=== PATIENT | male | born 1945 | race Caucasian/White ===

== ENCOUNTER → 2016-06-20 | Outpatient (CLI) | payer MEDICARE ==
[2016-05-10 11:12] VITALS: BP 126/80
[~2016-06-20] MED LIST: ATOR20TA PO; ATOR20TA58 PO; CEPH-264 PO; FLUC100T7 PO; FURO-68 PO; LOSA25TA4 PO; OMEG500C3 PO; POTA99TA10 PO; SULF1TAB24 PO; TAMS0.4C97 PO
== END | disposition home or self-care (01) ==
LOC: PMGWOUND 15:07
PROVIDERS: ATTEND Emergency Medicine Undersea and Hyperbaric Medicine
DX: I87.332 Chronic venous hypertension (idiopathic) with ulcer and inflammation of left lower extremity (principal); L97.221 Non-pressure chronic ulcer of left calf limited to breakdown of skin; E78.00 Pure hypercholesterolemia, unspecified; Z87.891 Personal history of nicotine dependence; Z72.89 Other problems related to lifestyle; Z85.038 Personal history of other malignant neoplasm of large intestine
CPT/HCPCS: 99203; 99214

== ENCOUNTER → 2016-06-27 | Outpatient (CLI) | payer MEDICARE ==
[2016-05-10 11:12] VITALS: BP 126/80
== END | disposition home or self-care (01) ==
LOC: PMGWOUND 13:40
PROVIDERS: ATTEND Emergency Medicine Undersea and Hyperbaric Medicine
DX: I87.332 Chronic venous hypertension (idiopathic) with ulcer and inflammation of left lower extremity (principal); L97.221 Non-pressure chronic ulcer of left calf limited to breakdown of skin; L03.116 Cellulitis of left lower limb; E78.00 Pure hypercholesterolemia, unspecified; I89.0 Lymphedema, not elsewhere classified; Z85.038 Personal history of other malignant neoplasm of large intestine; Z87.891 Personal history of nicotine dependence; Z72.89 Other problems related to lifestyle
CPT/HCPCS: 99214

== ENCOUNTER → 2016-07-04 | Outpatient (CLI) | payer MEDICARE ==
[2016-05-10 11:12] VITALS: BP 126/80
== END | disposition home or self-care (01) ==
LOC: PMGWOUND 12:27
PROVIDERS: ATTEND Emergency Medicine Undersea and Hyperbaric Medicine
DX: I87.332 Chronic venous hypertension (idiopathic) with ulcer and inflammation of left lower extremity (principal); L97.221 Non-pressure chronic ulcer of left calf limited to breakdown of skin; E78.00 Pure hypercholesterolemia, unspecified; Z87.891 Personal history of nicotine dependence; Z72.89 Other problems related to lifestyle; Z85.038 Personal history of other malignant neoplasm of large intestine
CPT/HCPCS: 99214

== ENCOUNTER → 2017-06-22 | Outpatient (CLI) | payer MEDICARE | END | disposition home or self-care (01) | LOC: PMGWOUND 10:32 | DX: I87.333 Chronic venous hypertension (idiopathic) with ulcer and inflammation of bilateral lower extremity (principal); L97.221 Non-pressure chronic ulcer of left calf limited to breakdown of skin; L97.811 Non-pressure chronic ulcer of other part of right lower leg limited to breakdown of skin; E78.00 Pure hypercholesterolemia, unspecified; L02.212 Cutaneous abscess of back [any part, except buttock and flank]; I89.0 Lymphedema, not elsewhere classified; Z85.038 Personal history of other malignant neoplasm of large intestine; Z87.891 Personal history of nicotine dependence | CPT/HCPCS: 97597; 97598 ==

== ENCOUNTER → 2017-06-27 | Outpatient (CLI) | payer MEDICARE | END | disposition home or self-care (01) | LOC: PMGWOUND 10:50 | DX: I87.332 Chronic venous hypertension (idiopathic) with ulcer and inflammation of left lower extremity (principal); L97.221 Non-pressure chronic ulcer of left calf limited to breakdown of skin; E78.00 Pure hypercholesterolemia, unspecified; L02.212 Cutaneous abscess of back [any part, except buttock and flank]; I89.0 Lymphedema, not elsewhere classified; Z85.038 Personal history of other malignant neoplasm of large intestine; Z87.891 Personal history of nicotine dependence | CPT/HCPCS: 29581 ==

== ENCOUNTER → 2017-06-30 | Outpatient (CLI) | payer MEDICARE | END | disposition home or self-care (01) | LOC: PMGWOUND 11:50 | DX: I87.332 Chronic venous hypertension (idiopathic) with ulcer and inflammation of left lower extremity (principal); L97.221 Non-pressure chronic ulcer of left calf limited to breakdown of skin; E78.00 Pure hypercholesterolemia, unspecified; L02.212 Cutaneous abscess of back [any part, except buttock and flank]; I89.0 Lymphedema, not elsewhere classified; Z85.038 Personal history of other malignant neoplasm of large intestine; Z87.891 Personal history of nicotine dependence | CPT/HCPCS: 29581 ==

== ENCOUNTER → 2017-07-04 | Outpatient (CLI) | payer MEDICARE | END | disposition home or self-care (01) | LOC: PMGWOUND 10:08 | DX: I87.332 Chronic venous hypertension (idiopathic) with ulcer and inflammation of left lower extremity (principal); L97.221 Non-pressure chronic ulcer of left calf limited to breakdown of skin; I89.0 Lymphedema, not elsewhere classified; E78.00 Pure hypercholesterolemia, unspecified; Z85.038 Personal history of other malignant neoplasm of large intestine; Z87.891 Personal history of nicotine dependence | CPT/HCPCS: 99214 ==

== ENCOUNTER → 2017-07-11 | Outpatient (CLI) | payer MEDICARE | END | disposition home or self-care (01) | LOC: PMGWOUND 10:34 | DX: I87.332 Chronic venous hypertension (idiopathic) with ulcer and inflammation of left lower extremity (principal); L97.221 Non-pressure chronic ulcer of left calf limited to breakdown of skin; I89.0 Lymphedema, not elsewhere classified; E78.00 Pure hypercholesterolemia, unspecified; Z85.038 Personal history of other malignant neoplasm of large intestine; Z87.891 Personal history of nicotine dependence | CPT/HCPCS: 29581 ==

== ENCOUNTER → 2017-07-14 | Outpatient (CLI) | payer MEDICARE | END | disposition home or self-care (01) | LOC: PMGWOUND 10:52 | DX: I87.332 Chronic venous hypertension (idiopathic) with ulcer and inflammation of left lower extremity (principal); L97.221 Non-pressure chronic ulcer of left calf limited to breakdown of skin; I89.0 Lymphedema, not elsewhere classified; E78.00 Pure hypercholesterolemia, unspecified; Z85.038 Personal history of other malignant neoplasm of large intestine; Z87.891 Personal history of nicotine dependence | CPT/HCPCS: 29581 ==

== ENCOUNTER → 2017-07-18 | Outpatient (CLI) | payer MEDICARE | END | disposition home or self-care (01) | LOC: PMGWOUND 10:43 | DX: I87.332 Chronic venous hypertension (idiopathic) with ulcer and inflammation of left lower extremity (principal); L97.221 Non-pressure chronic ulcer of left calf limited to breakdown of skin; I89.0 Lymphedema, not elsewhere classified; E78.00 Pure hypercholesterolemia, unspecified; Z85.038 Personal history of other malignant neoplasm of large intestine; Z87.891 Personal history of nicotine dependence | CPT/HCPCS: 29581 ==

== ENCOUNTER → 2017-07-21 | Outpatient (CLI) | payer MEDICARE | END | disposition home or self-care (01) | LOC: PMGWOUND 10:57 | DX: I87.332 Chronic venous hypertension (idiopathic) with ulcer and inflammation of left lower extremity (principal); L97.221 Non-pressure chronic ulcer of left calf limited to breakdown of skin; I89.0 Lymphedema, not elsewhere classified; E78.00 Pure hypercholesterolemia, unspecified; Z85.038 Personal history of other malignant neoplasm of large intestine | CPT/HCPCS: 29581 ==

== ENCOUNTER → 2017-07-25 | Outpatient (CLI) | payer MEDICARE | END | disposition home or self-care (01) | LOC: PMGWOUND 09:54 | DX: I87.332 Chronic venous hypertension (idiopathic) with ulcer and inflammation of left lower extremity (principal); L97.221 Non-pressure chronic ulcer of left calf limited to breakdown of skin; I89.0 Lymphedema, not elsewhere classified; E78.00 Pure hypercholesterolemia, unspecified; Z85.038 Personal history of other malignant neoplasm of large intestine | CPT/HCPCS: 29581 ==

== ENCOUNTER → 2017-07-28 | Outpatient (CLI) | payer MEDICARE | END | disposition home or self-care (01) | LOC: PMGWOUND 07:51 | DX: I87.332 Chronic venous hypertension (idiopathic) with ulcer and inflammation of left lower extremity (principal); L97.221 Non-pressure chronic ulcer of left calf limited to breakdown of skin; I89.0 Lymphedema, not elsewhere classified; E78.00 Pure hypercholesterolemia, unspecified; Z85.038 Personal history of other malignant neoplasm of large intestine | CPT/HCPCS: 29581 ==

== ENCOUNTER → 2017-08-03 | Outpatient (CLI) | payer MEDICARE | END | disposition home or self-care (01) | LOC: PMGWOUND 10:17 | DX: I87.332 Chronic venous hypertension (idiopathic) with ulcer and inflammation of left lower extremity (principal); L97.221 Non-pressure chronic ulcer of left calf limited to breakdown of skin; I89.0 Lymphedema, not elsewhere classified; E78.00 Pure hypercholesterolemia, unspecified; Z87.891 Personal history of nicotine dependence; Z85.038 Personal history of other malignant neoplasm of large intestine | CPT/HCPCS: 99211 ==

== ENCOUNTER 2017-10-29 14:42 | Emergency (ER) | payer MEDICARE ==
[~2017-10-29] VITALS: Ht 182.9 cm; Wt 108.0 kg
[2017-10-29] MEDS ORDERED: SULF1TAB24 PO (15:21)
--- NOTE | 2017-10-29 15:22 | PHYS DOC ---
Past Medical History Past Medical History: CAD, Cancer, DVT, Gallstones, Hypertension, Vascular Disease, Other Additional Past Medical Histor: colon cancer, LEG LYMPH EDEMA, CELLULITIS BILAT LEG,CHRONIC LEG SWELLING Past Surgical History: Other Additional Past Surgical Histo: colostomy, cyst removed from tailbone, BILAT LEG VEIN STRIPPING Alcohol Use: Occasionally Drug Use: None Adult General Chief Complaint Chief Complaint: INSECT BITE [facility] HPI Patient is a 72 year old male presents to the ED complaining of insect bite to left forearm 2 days ago. States since then he has noticed increased redness around the bite area. Describes the pain as sharp. Rates the pain as 4 out of 10. Denies fever, nausea/vomiting, chest pain, shortness of breath, abdominal pain, diarrhea, headache or vision changes. Review of Systems Review of Systems Constitutional: Denies fever or chills [] Eyes: Denies change in visual acuity, redness, or eye pain [] HENT: Denies nasal congestion or sore throat [] Respiratory: Denies cough or shortness of breath [] Cardiovascular: No additional information not addressed in HPI [] GI: Denies abdominal pain, nausea, vomiting, bloody stools or diarrhea [] : Denies dysuria or hematuria [] Musculoskeletal: Denies back pain or joint pain [] Integument: Complains of insect bite. Denies rash or skin lesions [] Neurologic: Denies headache, focal weakness or sensory changes [] All other systems were reviewed and found to be within normal limits, except as documented in this note. Allergies Allergies Allergies Coded Allergies Type Severity Reaction Last Updated Verified codeine Adverse Reaction Intermediate very sleepy 04/14/16 Yes Physical Exam Physical Exam Constitutional: Well developed, well nourished, no acute distress, non-toxic appearance. [] HENT: Normocephalic, atraumatic Neck: Normal range of motion, no tenderness, supple, no stridor. [] Cardiovascular:Heart rate regular rhythm, no murmur [] Lungs & Thorax: Bilateral breath sounds clear to auscultation [] Abdomen: Bowel sounds normal, soft, no tenderness, no masses, no pulsatile masses. [] Skin: Warm, dry, no erythema, no rash. [] Back: No tenderness, no CVA tenderness. [] Extremities: Nickel sized insect bite to left volar forearm with surrounding erythema and warmth approximately 1 cm consistent with cellulitis. No bony tenderness, no cyanosis, no clubbing, ROM intact, no edema. [] Neurologic: Alert and oriented X 3, normal motor function, normal sensory function, no focal deficits noted. [] Psychologic: Affect normal, judgement normal, mood normal. [] EKG EKG [] Radiology/Procedures Radiology/Procedures [] Course & Med Decision Making Course & Med Decision Making Pertinent Labs and Imaging studies reviewed. (See chart for details) []Discussed symptomatic treatment with patient. We'll prescribe Bactrim outpatient. Patient has follow-up with his doctor in 2 days. Discussed reasons to return to the ED. Patient understands and agrees with plan. Family at bedside. Dragon Disclaimer Dragon Disclaimer This electronic medical record was generated, in whole or in part, using a voice recognition dictation system. Departure Departure Impression: Primary Impression: Cellulitis Additional Impression: Insect bite Disposition: 01 HOME, SELF-CARE Condition: STABLE Referrals: DEAN URIAS MD (PCP) Patient Instructions: Cellulitis, Insect Bite Scripts Sulfamethoxazole/Trimethoprim (BACTRIM DS TABLET) 1 Each Tablet 1 TAB PO BID for 10 Days, #20 TAB Prov: KESHAV OBRIEN 10/29/17 Problem Qualifiers KESHAV OBRIEN Oct 29, 2017 15:22
[2017-10-29 15:23] VITALS: BP 170/80
== END 2017-10-29 15:31 | disposition home or self-care (01) ==
LOC: ER 14:42
DX: S50.862A Insect bite (nonvenomous) of left forearm, initial encounter (principal); L03.114 Cellulitis of left upper limb; I10 Essential (primary) hypertension; I25.10 Atherosclerotic heart disease of native coronary artery without angina pectoris; Z86.718 Personal history of other venous thrombosis and embolism; Z93.3 Colostomy status; Z88.5 Allergy status to narcotic agent; W57.XXXA Bitten or stung by nonvenomous insect and other nonvenomous arthropods, initial encounter; Y93.89 Activity, other specified; Y92.89 Other specified places as the place of occurrence of the external cause; Y99.8 Other external cause status
CPT/HCPCS: 99283

== ENCOUNTER → 2017-10-31 | Outpatient (CLI) | payer MEDICARE ==
[2017-10-29 15:23] VITALS: BP 170/80
[2017-10-31 15:01] LABS: BASO # 0.1 x10^3/uL (0.0-0.2); BASO % 1 % (0-3); EOS # 0.1 x10^3/uL (0.0-0.7); EOS % 1 % (0-3); HEMATOCRIT 45.9 % (39.0-53.0); HEMOGLOBIN 15.4 g/dL (13.0-17.5); LYMPH % 8 % (24-48); MEAN CORPUSCULAR HEMOGLOBIN 31 pg (25-35); MEAN CORPUSCULAR HGB CONC 34 g/dL (31-37); MEAN CORPUSCULAR VOLUME 92 fL (79-100); MONO # 1.2 x10^3/uL (0.0-1.1); MONO % 9 % (0-9); NEUT # 10.1 x10^3uL (1.8-7.7); NEUT % 81 % (31-73); PLATELET COUNT 286 x10^3/uL (140-400); RED BLOOD COUNT 4.99 x10^6/uL (4.30-5.70); RED CELL DISTRIBUTION WIDTH 16.1 % (11.5-14.5); WHITE BLOOD COUNT 12.4 x10^3/uL (4.0-11.0)
[2017-10-31 15:10] LABS: CALCIUM 9.5 mg/dL (8.5-10.1); CREATININE 1.9 mg/dL (0.7-1.3); GFR 34.8; POTASSIUM 4.5 mmol/L (3.5-5.1)
== END | disposition home or self-care (01) ==
LOC: LAB 14:38
PROVIDERS: ATTEND Internal Medicine Cardiovascular Disease
DX: I11.0 Hypertensive heart disease with heart failure (principal); I50.9 Heart failure, unspecified; R42 Dizziness and giddiness; E78.5 Hyperlipidemia, unspecified; E78.00 Pure hypercholesterolemia, unspecified; I73.9 Peripheral vascular disease, unspecified; Z82.49 Family history of ischemic heart disease and other diseases of the circulatory system; Z80.8 Family history of malignant neoplasm of other organs or systems; Z86.718 Personal history of other venous thrombosis and embolism; Z87.891 Personal history of nicotine dependence; Z79.899 Other long term (current) drug therapy; Z85.038 Personal history of other malignant neoplasm of large intestine; Z79.1 Long term (current) use of non-steroidal anti-inflammatories (NSAID)
CPT/HCPCS: 36415; 80048; 83735; 85025

== ENCOUNTER → 2017-11-01 | Outpatient (CLI) | payer MEDICARE ==
[2017-10-29 15:23] VITALS: BP 170/80
== END | disposition home or self-care (01) ==
LOC: PMGWOUND 11:10
PROVIDERS: ATTEND Preventive Medicine Undersea and Hyperbaric Medicine
DX: S50.862A Insect bite (nonvenomous) of left forearm, initial encounter (principal); I11.0 Hypertensive heart disease with heart failure; I50.9 Heart failure, unspecified; E78.00 Pure hypercholesterolemia, unspecified; E78.5 Hyperlipidemia, unspecified; I25.10 Atherosclerotic heart disease of native coronary artery without angina pectoris; I10 Essential (primary) hypertension; I73.9 Peripheral vascular disease, unspecified; N40.1 Benign prostatic hyperplasia with lower urinary tract symptoms; Z79.1 Long term (current) use of non-steroidal anti-inflammatories (NSAID); Z79.899 Other long term (current) drug therapy; Z85.038 Personal history of other malignant neoplasm of large intestine; Z87.891 Personal history of nicotine dependence; Z93.3 Colostomy status; Z88.5 Allergy status to narcotic agent; W57.XXXA Bitten or stung by nonvenomous insect and other nonvenomous arthropods, initial encounter; Y93.9 Activity, unspecified; Y92.9 Unspecified place or not applicable; Y99.9 Unspecified external cause status
CPT/HCPCS: 99213

== ENCOUNTER 2017-11-20 11:19 | Inpatient (IN) | payer MEDICARE ==
[~2017-11-20] VITALS: Ht 182.9 cm; Wt 93.0 kg
[~2017-11-20 11:19] MED LIST changes: -LOSA25TA4 PO; +LOSA25TA5 PO
--- NOTE | 2017-11-20 13:27 | PHYS DOC ---
Past Medical History Past Medical History: CAD, Cancer, DVT, Gallstones, Hypertension, Vascular Disease, Other Additional Past Medical Histor: colon cancer, LEG LYMPH EDEMA, CELLULITIS BILAT LEG,CHRONIC LEG SWELLING Past Surgical History: Other Additional Past Surgical Histo: colostomy, cyst removed from tailbone, BILAT LEG VEIN STRIPPING Alcohol Use: Sober Drug Use: None Adult General Chief Complaint Chief Complaint: DIZZY/LIGHT HEADED HPI HPI Patient is a 72 year old male with a history of colon cancer (colostomy bag) and HTN presents to the ED complaining of dizzy spell approximately 5-6 hours ago. States he has been getting these dizzy spells over the last couple of months. States today he was sitting in his chair and became very dizzy. Associated symptoms include left arm tingling. Currently having no symptoms. Denies chest pain, shortness of breath, n/v, weakness, syncope, fever, abdominal pain or headache. Review of Systems Review of Systems Constitutional: Denies fever or chills [] Eyes: Denies change in visual acuity, redness, or eye pain [] HENT: Denies nasal congestion or sore throat [] Respiratory: Denies cough or shortness of breath [] Cardiovascular: No additional information not addressed in HPI [] GI: Denies abdominal pain, nausea, vomiting, bloody stools or diarrhea [] : Denies dysuria or hematuria [] Musculoskeletal: Denies back pain or joint pain [] Integument: Denies rash or skin lesions [] Neurologic: Complains of dizziness and left arm tingling. Denies headache, focal weakness or sensory changes [] All other systems were reviewed and found to be within normal limits, except as documented in this note. Allergies Allergies Allergies Coded Allergies Type Severity Reaction Last Updated Verified codeine Adverse Reaction Intermediate very sleepy 04/14/16 Yes Physical Exam Physical Exam Constitutional: Well developed, well nourished, no acute distress, non-toxic appearance. [] HENT: Normocephalic, atraumatic, bilateral external ears normal, oropharynx moist, no oral exudates, nose normal. [] Eyes: PERRLA, EOMI, conjunctiva normal, no discharge. [] Neck: Normal range of motion, no tenderness, supple, no stridor. [] Cardiovascular:Heart rate regular rhythm, no murmur [] Lungs & Thorax: Bilateral breath sounds clear to auscultation [] Abdomen: Bowel sounds normal, soft, no tenderness, no masses, no pulsatile masses. [] Skin: Warm, dry, no erythema, no rash. [] Back: No tenderness, no CVA tenderness. [] Extremities: No tenderness, no cyanosis, no clubbing, ROM intact, no edema. [] Neurologic: Alert and oriented X 3, normal motor function, normal sensory function, no focal deficits noted. [] Psychologic: Affect normal, judgement normal, mood normal. [] Current Patient Data Vital Signs Vital Signs Date Time Temp Pulse Resp B/P (MAP) Pulse Ox O2 Delivery O2 Flow Rate FiO2 11/20/17 13:10 86 20 137/73 (94) 96 Room Air Lab Values Laboratory Tests Test 11/20/17 13:20 11/20/17 13:28 11/20/17 13:53 Urine Collection Type Unknown Urine Color Yellow Urine Clarity Clear Urine pH 5.0 Urine Specific [place] 1.010 Urine Protein Negative mg/dL (NEG-TRACE) Urine Glucose (UA) Negative mg/dL (NEG) Urine Ketones (Stick) Negative mg/dL (NEG) Urine Blood Moderate (NEG) Urine Nitrite Negative (NEG) Urine Bilirubin Negative (NEG) Urine Urobilinogen Dipstick 0.2 mg/dL (0.2 mg/dL) Urine Leukocyte Esterase Negative (NEG) Urine RBC 6-10 /HPF (0-2) Urine WBC Rare /HPF (0-4) Urine Squamous Epithelial Cells Occ /LPF Urine Bacteria 0 /HPF (0-FEW) Glucose (Fingerstick) 108 mg/dL (70-99) H White Blood Count 8.5 x10^3/uL (4.0-11.0) Red Blood Count 4.95 x10^6/uL (4.30-5.70) Hemoglobin 15.8 g/dL (13.0-17.5) Hematocrit 46.0 % (39.0-53.0) Mean Corpuscular Volume 93 fL (79-100) Mean Corpuscular Hemoglobin 32 pg (25-35) Mean Corpuscular Hemoglobin Concent 34 g/dL (31-37) Red Cell Distribution Width 15.6 % (11.5-14.5) H Platelet Count 290 x10^3/uL (140-400) Neutrophils (%) (Auto) 78 % (31-73) H Lymphocytes (%) (Auto) 11 % (24-48) L Monocytes (%) (Auto) 8 % (0-9) Eosinophils (%) (Auto) 2 % (0-3) Basophils (%) (Auto) 1 % (0-3) Neutrophils # (Auto) 6.7 x10^3uL (1.8-7.7) Lymphocytes # (Auto) 1.0 x10^3/uL (1.0-4.8) Monocytes # (Auto) 0.7 x10^3/uL (0.0-1.1) Eosinophils # (Auto) 0.2 x10^3/uL (0.0-0.7) Basophils # (Auto) 0.1 x10^3/uL (0.0-0.2) Prothrombin Time 12.8 SEC (11.7-14.0) Prothrombin Time INR 1.0 (0.8-1.1) Sodium Level 135 mmol/L (136-145) L Potassium Level 4.1 mmol/L (3.5-5.1) Chloride Level 97 mmol/L (98-107) L Carbon Dioxide Level 32 mmol/L (21-32) Anion Gap 6 (6-14) Blood Urea Nitrogen 24 mg/dL (8-26) Creatinine 1.6 mg/dL (0.7-1.3) H Estimated GFR (Cockcroft-Gault) 42.5 BUN/Creatinine Ratio 15 (6-20) Glucose Level 104 mg/dL (70-99) H Calcium Level 9.6 mg/dL (8.5-10.1) Magnesium Level 1.8 mg/dL (1.8-2.4) Total Bilirubin 1.0 mg/dL (0.2-1.0) Aspartate Amino Transferase (AST) 17 U/L (15-37) Alanine Aminotransferase (ALT) 22 U/L (16-63) Alkaline Phosphatase 75 U/L (46-116) Troponin I Quantitative < 0.017 ng/mL (0.000-0.055) Total Protein 8.1 g/dL (6.4-8.2) Albumin 3.6 g/dL (3.4-5.0) Albumin/Globulin Ratio 0.8 (1.0-1.7) L Thyroid Stimulating Hormone (TSH) 2.402 uIU/mL (0.358-3.74) Laboratory Tests 11/20/17 13:53 Laboratory Tests 11/20/17 13:53 EKG EKG [] Radiology/Procedures Radiology/Procedures PROCEDURE: CT HEAD WO CONTRAST CT HEAD INDICATION: Dizziness, left arm TINGLING COMPARISON: 05/21/2014 TECHNIQUE: 5 mm contiguous axial images were obtained from the skull base to the vertex in both bone and soft tissue algorithm. Exposure: One or more of the following individualized dose reduction techniques were utilized for this examination: 1. Automated exposure control 2. Adjustment of the mA and/or kV according to patient size 3. Use of iterative reconstruction technique FINDINGS: Mild bilateral periventricular white matter hypodensities likely chronic small vessel ischemic disease. No evidence of acute intracranial hemorrhage. No extra-axial fluid collections. No mass effect or midline shift. Ventricular size is appropriate. Basal cisterns are patent. No fractures identified.Lanier-white differentiation is preserved.Globes and orbits are within normal limits. Mild mucosal thickening identified in the bilateral ethmoidal sinus and right maxillary sinus. IMPRESSION: No acute intracranial findings. [] Course & Med Decision Making Course & Med Decision Making Pertinent Labs and Imaging studies reviewed. (See chart for details) []Discussed case with hospitalist, Dr. Boland. Agrees to admission and further management of patient. Patient stable for admission. Staff Physician Addendum: I was working in the ER during the course of this patient's visit. I was available for consultation as needed, but I was not directly involved in the care of this patient. Dragon Disclaimer Dragon Disclaimer This electronic medical record was generated, in whole or in part, using a voice recognition dictation system. Departure Departure Impression: Primary Impression: Dizziness Disposition: ADMITTED INPATIENT Admitting Physician: Feroz Boland Condition: STABLE Referrals: SANDRA MAXWELL MD (PCP) Scripts Meclizine Hcl (MECLIZINE HCL) 12.5 Mg Tablet 12.5 MG PO PRN Q6HRS PRN for DIZZINESS for 30 Days, TAB Prov: KIN OHARA MD 11/22/17 KESHAV OBRIEN Nov 20, 2017 13:27 JENN ALSTON MD Nov 23, 2017 02:16
[2017-11-20 13:30] LABS: BILIRUBIN,URINE NEGATIVE (NEG); CLARITY,URINE CLEAR; COLOR,URINE YELLOW; NITRITE,URINE NEGATIVE (NEG); PROTEIN,URINE NEGATIVE (NEG-TRACE); UROBILINOGEN,URINE 0.2 mg/dL (0.2 mg/dL)
[2017-11-20 13:48] LABS: BACTERIA,URINE 0 /HPF (0-FEW); SQUAMOUS EPITHELIAL CELL,UR OCC /LPF; WBC,URINE RARE /HPF (0-4)
[2017-11-20 14:05] LABS: BASO # 0.1 x10^3/uL (0.0-0.2); BASO % 1 % (0-3); EOS # 0.2 x10^3/uL (0.0-0.7); EOS % 2 % (0-3); HEMOGLOBIN 15.8 g/dL (13.0-17.5); LYMPH % 11 % (24-48); MEAN CORPUSCULAR HEMOGLOBIN 32 pg (25-35); MEAN CORPUSCULAR HGB CONC 34 g/dL (31-37); MEAN CORPUSCULAR VOLUME 93 fL (79-100); MONO # 0.7 x10^3/uL (0.0-1.1); MONO % 8 % (0-9); NEUT # 6.7 x10^3uL (1.8-7.7); NEUT % 78 % (31-73); PLATELET COUNT 290 x10^3/uL (140-400); RED BLOOD COUNT 4.95 x10^6/uL (4.30-5.70); RED CELL DISTRIBUTION WIDTH 15.6 % (11.5-14.5); WHITE BLOOD COUNT 8.5 x10^3/uL (4.0-11.0)
[2017-11-20 14:13] LABS: CALCIUM 9.6 mg/dL (8.5-10.1); CREATININE 1.6 mg/dL (0.7-1.3); GFR 42.5; POTASSIUM 4.1 mmol/L (3.5-5.1)
[2017-11-20 14:14] LABS: PROTHROMBIN TIME PATIENT 12.8 SEC (11.7-14.0)
[2017-11-20 14:18] LABS: ALBUMIN 3.6 g/dL (3.4-5.0); ALBUMIN/GLOBULIN RATIO 0.8 (1.0-1.7); MAGNESIUM 1.8 mg/dL (1.8-2.4); TOTAL PROTEIN 8.1 g/dL (6.4-8.2)
--- NOTE | 2017-11-20 14:26 | RAD ---
CT HEAD INDICATION: Dizziness, left arm TINGLING COMPARISON: 05/21/2014 TECHNIQUE: 5 mm contiguous axial images were obtained from the skull base to the vertex in both bone and soft tissue algorithm. Exposure: One or more of the following individualized dose reduction techniques were utilized for this examination: 1. Automated exposure control 2. Adjustment of the mA and/or kV according to patient size 3. Use of iterative reconstruction technique FINDINGS: Mild bilateral periventricular white matter hypodensities likely chronic small vessel ischemic disease. No evidence of acute intracranial hemorrhage. No extra-axial fluid collections. No mass effect or midline shift. Ventricular size is appropriate. Basal cisterns are patent. No fractures identified.Lanier-white differentiation is preserved.Globes and orbits are within normal limits. Mild mucosal thickening identified in the bilateral ethmoidal sinus and right maxillary sinus. IMPRESSION: No acute intracranial findings. Electronically signed by: Germain Patiño MD (11/20/2017 2:23 PM) [id number]
--- NOTE | 2017-11-20 14:31 | RAD ---
EXAM: CHEST 1 VIEW History: Dizziness, left arm tingling COMPARISON: 11/20/2014 TECHNIQUE: Single portable radiograph of the chest FINDINGS: The cardiac silhouette is unremarkable. The lungs are clear bilaterally. The costophrenic sulci are clear and well demarcated. IMPRESSION: No radiographic evidence of an acute cardiopulmonary process. Electronically signed by: Germain Patiño MD (11/20/2017 2:27 PM) [id number]
--- NOTE | 2017-11-20 14:39 | EKG ---
[facility] [address] [place] [address] Test Date: 2017-11-20 Test Time: 13:44:25 Pat Name: JARROD GARCIA Department: Room: Gender: M [employer] Architect: : [id number] Requested By: KESHAV OBRIEN Order Number: [id number] Reading MD: Edouard Noguera Measurements Intervals [place] Rate: 68 P: 36 CT: 138 QRS: 13 QRSD: 96 T: 149 QT: 386 QTc: 411 Interpretive Statements SINUS RHYTHM ATRIAL PREMATURE COMPLEX(ES), BIGEMINY ST & T ABNORMALITY, CONSIDER HIGH LATERAL ISCHEMIA OR LEFT VENTRICULAR STRAIN T ABNORMALITY IN INFERIOR LEADS ABNORMAL ECG Electronically Signed On 11-21-2017 16:27:47 CDT by Edouard Noguera
[2017-11-20] MEDS ORDERED: ONDANSETRON PF 4 MG/2 ML VIAL. IV PRN (15:00)
[2017-11-20] MEDS ORDERED: fentaNYL PF VIAL 100 MCG/2 ML VIAL IV PRN (15:00)
[2017-11-20] MEDS ORDERED: ACETAMINOPHEN 325 MG TABLET. PO PRN (15:00)
--- NOTE | 2017-11-20 18:43 | HP ---
ADMIT DATE: 11/20/2017 CHIEF COMPLAINT: Left-sided weakness and dizziness. HISTORY OF PRESENT ILLNESS: The patient is a pleasant 72-year-old male well known to my service. He has got multiple medical issues. Today, he presented with some lightheadedness. He was a little weak on the left. I talked to the ER doctor. We are concerned he could be having some pre-stroke symptoms. We are going to admit the patient and consult Neurology. PAST MEDICAL HISTORY: CAD; cancer; DVT; gallstones; hypertension; vascular disease; colon cancer; chronic lymphedema, he states this is hereditary; cellulitis; colostomy; tailbone cyst. ALLERGIES: CODEINE. FAMILY HISTORY: Lymphedema. SOCIAL HISTORY: He does not drink, smoke or take drugs. MEDICATIONS: Reviewed, please refer to the MRAD. REVIEW OF SYSTEMS: GENERAL: No history of weight change, weakness or fevers. SKIN: No bruising, hair changes or rashes. EYES: No blurred, double or loss of vision. NOSE AND THROAT: No history of nosebleeds, hoarseness or sore throat. HEART: No history of palpitations, chest pain or shortness of breath on exertion. LUNGS: Denies cough, hemoptysis, wheezing or shortness of breath. GASTROINTESTINAL: Denies changes in appetite, nausea, vomiting, diarrhea or constipation. GENITOURINARY: No history of frequency, urgency, hesitancy or nocturia. NEUROLOGIC: He complains of left-sided weakness and dizziness. PSYCHIATRIC: No history of panic, anxiety or depression. ENDOCRINE: No history of heat or cold intolerance, polyuria or polydipsia. EXTREMITIES: Denies muscle weakness, joint pain, pain on walking or stiffness. PHYSICAL EXAMINATION: VITAL SIGNS: Temperature 98, respirations 18, blood pressure 133/73, O2 sat 96%. GENERAL: He is alert, cooperative, watching TV in the ER. HEART: Normal S1, S2. LUNGS: Clear. ABDOMEN: Soft. EXTREMITIES: 2+ edema. ENDOCRINE: No thyromegaly. LYMPHATICS: No cervical nodes. HEMATOPOIETIC: No bruising. NEUROLOGICAL: He is moving all extremities. He has a little bit decreased drencher strength on the left, slow to answer questions. LABORATORY DATA: Hematology is normal. Electrolytes: Sodium is ____ low at 135, chloride 97, creatinine is 1.6, glucose 104. ASSESSMENT AND PLAN: Stroke symptoms. The patient has been admitted. We will consult Neurology. Continue his home meds. Gentle IV fluids. Cardiac monitoring. PRN Antivert. YEIMI GRIFFITHS DO DR: NAZANIN/charlie JOB#: [id number] / [id number]
[2017-11-20 19:00] VITALS: BP 108/53
[2017-11-20] MEDS ORDERED: FURO-69 PO (19:27)
[2017-11-20 23:00] VITALS: BP 139/78
[2017-11-21] VITALS (9 sets, daily range): BP systolic 93–132; BP diastolic 50–89
[2017-11-21 08:01] LABS: BASO % 1 % (0-3); EOS # 0.2 x10^3/uL (0.0-0.7); EOS % 3 % (0-3); HEMATOCRIT 44.1 % (39.0-53.0); HEMOGLOBIN 15.1 g/dL (13.0-17.5); LYMPH # 0.8 x10^3/uL (1.0-4.8); LYMPH % 12 % (24-48); MEAN CORPUSCULAR HEMOGLOBIN 32 pg (25-35); MEAN CORPUSCULAR HGB CONC 34 g/dL (31-37); MEAN CORPUSCULAR VOLUME 93 fL (79-100); MONO # 0.6 x10^3/uL (0.0-1.1); MONO % 10 % (0-9); NEUT # 4.9 x10^3uL (1.8-7.7); NEUT % 75 % (31-73); PLATELET COUNT 242 x10^3/uL (140-400); RED BLOOD COUNT 4.76 x10^6/uL (4.30-5.70); RED CELL DISTRIBUTION WIDTH 15.6 % (11.5-14.5); WHITE BLOOD COUNT 6.6 x10^3/uL (4.0-11.0)
[2017-11-21 08:31] LABS: ALBUMIN 3.4 g/dL (3.4-5.0); ALBUMIN/GLOBULIN RATIO 0.9 (1.0-1.7); CALCIUM 9.4 mg/dL (8.5-10.1); CREATININE 1.3 mg/dL (0.7-1.3); POTASSIUM 3.8 mmol/L (3.5-5.1); TOTAL BILIRUBIN 1.1 mg/dL (0.2-1.0); TOTAL PROTEIN 7.4 g/dL (6.4-8.2)
[2017-11-21] MEDS ORDERED: ONDANSETRON PF 4 MG/2 ML VIAL. IV PRN (09:15)
[2017-11-21] MEDS ORDERED: MECLIZINE HCL 12.5 MG TABLET. PO PRN (09:15)
--- NOTE | 2017-11-21 09:44 | PDOC2 ---
CARDIAC CONSULT DATE OF CONSULT Date of Consult DATE: 11/21/17 TIME: 09:33 REASON FOR CONSULT Reason for Consult: dizziness REFERRING PHYSICIAN Referring Physician: Tomi SOURCE Source: Chart review, Patient HISTORY OF PRESENT ILLNESS HISTORY OF PRESENT ILLNESS This is a pleasant 72 yo male admitted for complains of vertigo. No dizziness. Reports that in the last week he has been having episodes to which he first has a throbbing dull achy frontal LEDBETTER with blurred vision and at times tingling to his left fingertips which goes to the left shoulder then the vertigo. He has not had any falls from this but described it as the room was spinning. Also he noticed that heat or change in the weather is a trigger as this occurred to him when he was outdoor. No recent fever chills, tinnitus, ear infection, colds. Denies any CP, SOA, palpitations. Upon admission he was a little dehydrated and he is currently on home low dose lasix for his LE lymphedema and lisinopril as well. Denies any unilateral weakness, dysarthria. PAST MEDICAL HISTORY Cardiovascular: CAD (nonobstructive with prior LHC), HTN, Hyperlipidemia, Other (venous insufficiency) Pulmonary: No pertinent hx CENTRAL NERVOUS SYSTEM: Other (No pertinent history) GI: Other (colon CA) Heme/Onc: No pertinent hx, Cancer (colon) Musculoskeletal: low back pain (lumbar stenosis), Osteoarthritis, Other (LE cellulitis) Infectious disease: No pertinent hx ENT: No pertinent hx Renal/: Benign prostatic enlarg. Endocrine: No pertinent hx Dermatology: Basal cell PAST SURGICAL HISTORY Past Surgical History: Colectomy, Colon Resection, Other (LE venous RF ablation ; basal cell CA resection; tailbone cyst removal) FAMILY HISTORY Family History: Stroke SOCIAL HISTORY Smoke: Quit ALCOHOL: none Drugs: None Lives: with Family CURRENT MEDICATIONS CURRENT MEDICATIONS Current Medications Medications (Trade) Dose Ordered Sig/Joce Route PRN Reason Start Time Stop Time Status Last Admin Dose Admin Acetaminophen (Tylenol) 650 mg PRN Q4HRS PRN PO FEVER 11/20/17 15:00 11/21/17 14:59 11/20/17 19:45 ALLERGIES ALLERGIES: Coded Allergies: codeine (Verified Adverse Reaction, Intermediate, very sleepy, 04/14/16) very sleepy ROS Review of System 14 point ROS evaluated with pertinent positives noted per HPI PHYSICAL EXAM General: Alert, Oriented X3, Cooperative, No acute distress HEENT: Atraumatic, Mucous membr. moist/pink Lungs: Clear to auscultation, Normal air movement Heart: Regular rate (SR bigeminal PACs. ), Normal S1, Normal S2 Extremities: No cyanosis, Other (trace to 1+ bilateral LE edema) Skin: No significant lesion, Other (mild LE edema with chornic lympedema with pink erythema to bilateral calf. ) Neuro: Normal speech, Sensation intact Psych/Mental Status: Mental status NL, Mood NL MUSCULOSKELETAL: Osteoarthritic changes both hands VITALS VITALS Vital Signs Date Time Temp Pulse Resp B/P (MAP) Pulse Ox O2 Delivery O2 Flow Rate FiO2 11/21/17 07:10 77 20 124/67 (86) 96 Room Air 11/21/17 07:00 97.8 97.8 LABS Lab: Laboratory Tests Test 11/20/17 13:20 11/20/17 13:28 11/20/17 13:53 11/20/17 20:45 Urine Collection Type Unknown Urine Color Yellow Urine Clarity Clear Urine pH 5.0 Urine Specific [place] 1.010 Urine Protein Negative mg/dL (NEG-TRACE) Urine Glucose (UA) Negative mg/dL (NEG) Urine Ketones (Stick) Negative mg/dL (NEG) Urine Blood Moderate (NEG) Urine Nitrite Negative (NEG) Urine Bilirubin Negative (NEG) Urine Urobilinogen Dipstick 0.2 mg/dL (0.2 mg/dL) Urine Leukocyte Esterase Negative (NEG) Urine RBC 6-10 /HPF (0-2) Urine WBC Rare /HPF (0-4) Urine Squamous Epithelial Cells Occ /LPF Urine Bacteria 0 /HPF (0-FEW) Glucose (Fingerstick) 108 mg/dL (70-99) White Blood Count 8.5 x10^3/uL (4.0-11.0) Red Blood Count 4.95 x10^6/uL (4.30-5.70) Hemoglobin 15.8 g/dL (13.0-17.5) Hematocrit 46.0 % (39.0-53.0) Mean Corpuscular Volume 93 fL (79-100) Mean Corpuscular Hemoglobin 32 pg (25-35) Mean Corpuscular Hemoglobin Concent 34 g/dL (31-37) Red Cell Distribution Width 15.6 % (11.5-14.5) Platelet Count 290 x10^3/uL (140-400) Neutrophils (%) (Auto) 78 % (31-73) Lymphocytes (%) (Auto) 11 % (24-48) Monocytes (%) (Auto) 8 % (0-9) Eosinophils (%) (Auto) 2 % (0-3) Basophils (%) (Auto) 1 % (0-3) Neutrophils # (Auto) 6.7 x10^3uL (1.8-7.7) Lymphocytes # (Auto) 1.0 x10^3/uL (1.0-4.8) Monocytes # (Auto) 0.7 x10^3/uL (0.0-1.1) Eosinophils # (Auto) 0.2 x10^3/uL (0.0-0.7) Basophils # (Auto) 0.1 x10^3/uL (0.0-0.2) Prothrombin Time 12.8 SEC (11.7-14.0) Prothromb Time International Ratio 1.0 (0.8-1.1) Sodium Level 135 mmol/L (136-145) Potassium Level 4.1 mmol/L (3.5-5.1) Chloride Level 97 mmol/L (98-107) Carbon Dioxide Level 32 mmol/L (21-32) Anion Gap 6 (6-14) Blood Urea Nitrogen 24 mg/dL (8-26) Creatinine 1.6 mg/dL (0.7-1.3) Estimated GFR (Cockcroft-Gault) 42.5 BUN/Creatinine Ratio 15 (6-20) Glucose Level 104 mg/dL (70-99) Calcium Level 9.6 mg/dL (8.5-10.1) Magnesium Level 1.8 mg/dL (1.8-2.4) Total Bilirubin 1.0 mg/dL (0.2-1.0) Aspartate Amino Transf (AST/SGOT) 17 U/L (15-37) Alanine Aminotransferase (ALT/SGPT) 22 U/L (16-63) Alkaline Phosphatase 75 U/L (46-116) Troponin I Quantitative < 0.017 ng/mL (0.000-0.055) < 0.017 ng/mL (0.000-0.055) Total Protein 8.1 g/dL (6.4-8.2) Albumin 3.6 g/dL (3.4-5.0) Albumin/Globulin Ratio 0.8 (1.0-1.7) Thyroid Stimulating Hormone (TSH) 2.402 uIU/mL (0.358-3.74) Test 11/21/17 07:00 White Blood Count 6.6 x10^3/uL (4.0-11.0) Red Blood Count 4.76 x10^6/uL (4.30-5.70) Hemoglobin 15.1 g/dL (13.0-17.5) Hematocrit 44.1 % (39.0-53.0) Mean Corpuscular Volume 93 fL (79-100) Mean Corpuscular Hemoglobin 32 pg (25-35) Mean Corpuscular Hemoglobin Concent 34 g/dL (31-37) Red Cell Distribution Width 15.6 % (11.5-14.5) Platelet Count 242 x10^3/uL (140-400) Neutrophils (%) (Auto) 75 % (31-73) Lymphocytes (%) (Auto) 12 % (24-48) Monocytes (%) (Auto) 10 % (0-9) Eosinophils (%) (Auto) 3 % (0-3) Basophils (%) (Auto) 1 % (0-3) Neutrophils # (Auto) 4.9 x10^3uL (1.8-7.7) Lymphocytes # (Auto) 0.8 x10^3/uL (1.0-4.8) Monocytes # (Auto) 0.6 x10^3/uL (0.0-1.1) Eosinophils # (Auto) 0.2 x10^3/uL (0.0-0.7) Basophils # (Auto) 0.0 x10^3/uL (0.0-0.2) Sodium Level 138 mmol/L (136-145) Potassium Level 3.8 mmol/L (3.5-5.1) Chloride Level 98 mmol/L (98-107) Carbon Dioxide Level 34 mmol/L (21-32) Anion Gap 6 (6-14) Blood Urea Nitrogen 30 mg/dL (8-26) Creatinine 1.3 mg/dL (0.7-1.3) Estimated GFR (Cockcroft-Gault) 54.0 BUN/Creatinine Ratio 23 (6-20) Glucose Level 103 mg/dL (70-99) Calcium Level 9.4 mg/dL (8.5-10.1) Total Bilirubin 1.1 mg/dL (0.2-1.0) Aspartate Amino Transf (AST/SGOT) 18 U/L (15-37) Alanine Aminotransferase (ALT/SGPT) 21 U/L (16-63) Alkaline Phosphatase 63 U/L (46-116) Total Protein 7.4 g/dL (6.4-8.2) Albumin 3.4 g/dL (3.4-5.0) Albumin/Globulin Ratio 0.9 (1.0-1.7) ASSESSMENT/PLAN ASSESSMENT/PLAN 1. Vertigo/LEDBETTER/LA paresthesia: no lightheadedness. Not related to arrhythmia. 2. Arrhythmia: Bigeminal PACs. Known. No significant ectopies. 3. HTN: controlled 4. HLP 5. Hx of colon CA/colostomy 6. Chronic lymphedema Recommendations 1. Continue to monitor rhythm. Recent event monitor due to near syncope. from -10/10/2017. Predominat rhythm was SR with frequent PACs. Rare PVCs with occasional PATs and very brief NSVT. 2. Follow up TTE. 3. Consult neurology. 4. Continue statin and ACEi. Start on ASA. LOLLY REINOSO APRN Nov 21, 2017 09:44
[2017-11-21] MEDS: OMEGA-3 FATTY ACIDS/FISH OIL 1,000 MG CAPSULE. PO SCH (10:27)
[2017-11-21] MEDS: TAMSULOSIN 0.4 MG CAP.ER.24H. PO SCH (10:28)
[2017-11-21] MEDS: POTASSIUM CHLORIDE 20 MEQ TABLET.ER. PO SCH (10:28)
[2017-11-21] MEDS: LOSARTAN POTASSIUM 25 MG TABLET. PO SCH (10:29)
[2017-11-21] MEDS: FUROSEMIDE 20 MG TABLET PO SCH (10:29)
[2017-11-21] MEDS: ASPIRIN ENTERIC COATED 81 MG TABLET.DR. PO SCH (10:31)
--- NOTE | 2017-11-21 12:44 | PDOC ---
PROGRESS NOTES Chief Complaint Chief Complaint dizziness Negative orthostasis AK I, VMN Hyperkalemia secondary to above MUltiple co morbidities History of Present Illness History of Present Illness Dizziness is acute on chronic, intermittent, non vertiginous negative orthostasis Lives alone at home, ambulates with a cane Labs better-hyperkalemia addressed Cards and neurology consulted As per cardiology note for echocardiogram today SOme PACs, brief NSTVtach PLAN: Echo Continue statin and ACEi. Start on ASA. as per cards PT.OT Orthstatics I did order Meclizine prn NEurology consulted Vitals Vitals Vital Signs Date Time Temp Pulse Resp B/P (MAP) Pulse Ox O2 Delivery O2 Flow Rate FiO2 11/21/17 11:59 Room Air 11/21/17 11:50 97.8 70 20 122/84 (97) 99 97.8 Physical Exam General: Alert, Oriented X3, Cooperative, No acute distress Heart: Regular rate (SR bigeminal PACs. ), Normal S1, Normal S2 Lungs: Clear Abdomen: Normal bowel sounds, Soft Extremities: No clubbing, No cyanosis, Other (trace to 1+ bilateral LE edema) Skin: No significant lesion, Other (mild LE edema with chornic lympedema with pink erythema to bilateral calf. ) Labs LABS Laboratory Tests Test 11/20/17 13:20 11/20/17 13:28 11/20/17 13:53 11/20/17 20:45 Urine Collection Type Unknown Urine Color Yellow Urine Clarity Clear Urine pH 5.0 Urine Specific [place] 1.010 Urine Protein Negative mg/dL (NEG-TRACE) Urine Glucose (UA) Negative mg/dL (NEG) Urine Ketones (Stick) Negative mg/dL (NEG) Urine Blood Moderate (NEG) Urine Nitrite Negative (NEG) Urine Bilirubin Negative (NEG) Urine Urobilinogen Dipstick 0.2 mg/dL (0.2 mg/dL) Urine Leukocyte Esterase Negative (NEG) Urine RBC 6-10 /HPF (0-2) Urine WBC Rare /HPF (0-4) Urine Squamous Epithelial Cells Occ /LPF Urine Bacteria 0 /HPF (0-FEW) Glucose (Fingerstick) 108 mg/dL (70-99) White Blood Count 8.5 x10^3/uL (4.0-11.0) Red Blood Count 4.95 x10^6/uL (4.30-5.70) Hemoglobin 15.8 g/dL (13.0-17.5) Hematocrit 46.0 % (39.0-53.0) Mean Corpuscular Volume 93 fL (79-100) Mean Corpuscular Hemoglobin 32 pg (25-35) Mean Corpuscular Hemoglobin Concent 34 g/dL (31-37) Red Cell Distribution Width 15.6 % (11.5-14.5) Platelet Count 290 x10^3/uL (140-400) Neutrophils (%) (Auto) 78 % (31-73) Lymphocytes (%) (Auto) 11 % (24-48) Monocytes (%) (Auto) 8 % (0-9) Eosinophils (%) (Auto) 2 % (0-3) Basophils (%) (Auto) 1 % (0-3) Neutrophils # (Auto) 6.7 x10^3uL (1.8-7.7) Lymphocytes # (Auto) 1.0 x10^3/uL (1.0-4.8) Monocytes # (Auto) 0.7 x10^3/uL (0.0-1.1) Eosinophils # (Auto) 0.2 x10^3/uL (0.0-0.7) Basophils # (Auto) 0.1 x10^3/uL (0.0-0.2) Prothrombin Time 12.8 SEC (11.7-14.0) Prothromb Time International Ratio 1.0 (0.8-1.1) Sodium Level 135 mmol/L (136-145) Potassium Level 4.1 mmol/L (3.5-5.1) Chloride Level 97 mmol/L (98-107) Carbon Dioxide Level 32 mmol/L (21-32) Anion Gap 6 (6-14) Blood Urea Nitrogen 24 mg/dL (8-26) Creatinine 1.6 mg/dL (0.7-1.3) Estimated GFR (Cockcroft-Gault) 42.5 BUN/Creatinine Ratio 15 (6-20) Glucose Level 104 mg/dL (70-99) Calcium Level 9.6 mg/dL (8.5-10.1) Magnesium Level 1.8 mg/dL (1.8-2.4) Total Bilirubin 1.0 mg/dL (0.2-1.0) Aspartate Amino Transf (AST/SGOT) 17 U/L (15-37) Alanine Aminotransferase (ALT/SGPT) 22 U/L (16-63) Alkaline Phosphatase 75 U/L (46-116) Troponin I Quantitative < 0.017 ng/mL (0.000-0.055) < 0.017 ng/mL (0.000-0.055) Total Protein 8.1 g/dL (6.4-8.2) Albumin 3.6 g/dL (3.4-5.0) Albumin/Globulin Ratio 0.8 (1.0-1.7) Thyroid Stimulating Hormone (TSH) 2.402 uIU/mL (0.358-3.74) Test 11/21/17 07:00 White Blood Count 6.6 x10^3/uL (4.0-11.0) Red Blood Count 4.76 x10^6/uL (4.30-5.70) Hemoglobin 15.1 g/dL (13.0-17.5) Hematocrit 44.1 % (39.0-53.0) Mean Corpuscular Volume 93 fL (79-100) Mean Corpuscular Hemoglobin 32 pg (25-35) Mean Corpuscular Hemoglobin Concent 34 g/dL (31-37) Red Cell Distribution Width 15.6 % (11.5-14.5) Platelet Count 242 x10^3/uL (140-400) Neutrophils (%) (Auto) 75 % (31-73) Lymphocytes (%) (Auto) 12 % (24-48) Monocytes (%) (Auto) 10 % (0-9) Eosinophils (%) (Auto) 3 % (0-3) Basophils (%) (Auto) 1 % (0-3) Neutrophils # (Auto) 4.9 x10^3uL (1.8-7.7) Lymphocytes # (Auto) 0.8 x10^3/uL (1.0-4.8) Monocytes # (Auto) 0.6 x10^3/uL (0.0-1.1) Eosinophils # (Auto) 0.2 x10^3/uL (0.0-0.7) Basophils # (Auto) 0.0 x10^3/uL (0.0-0.2) Sodium Level 138 mmol/L (136-145) Potassium Level 3.8 mmol/L (3.5-5.1) Chloride Level 98 mmol/L (98-107) Carbon Dioxide Level 34 mmol/L (21-32) Anion Gap 6 (6-14) Blood Urea Nitrogen 30 mg/dL (8-26) Creatinine 1.3 mg/dL (0.7-1.3) Estimated GFR (Cockcroft-Gault) 54.0 BUN/Creatinine Ratio 23 (6-20) Glucose Level 103 mg/dL (70-99) Calcium Level 9.4 mg/dL (8.5-10.1) Total Bilirubin 1.1 mg/dL (0.2-1.0) Aspartate Amino Transf (AST/SGOT) 18 U/L (15-37) Alanine Aminotransferase (ALT/SGPT) 21 U/L (16-63) Alkaline Phosphatase 63 U/L (46-116) Total Protein 7.4 g/dL (6.4-8.2) Albumin 3.4 g/dL (3.4-5.0) Albumin/Globulin Ratio 0.9 (1.0-1.7) Review of Systems Review of Systems As per history of present illness the rest of ROS 14 point negative Assessment and Plan Assessmemt and Plan Problems Medical Problems: (1) Dizziness Status: Acute Comment Review of Relevant I have reviewed the following items casandra (where applicable) has been applied. Labs Laboratory Tests Test 11/20/17 13:20 11/20/17 13:28 11/20/17 13:53 11/20/17 20:45 Urine Collection Type Unknown Urine Color Yellow Urine Clarity Clear Urine pH 5.0 Urine Specific [place] 1.010 Urine Protein Negative mg/dL (NEG-TRACE) Urine Glucose (UA) Negative mg/dL (NEG) Urine Ketones (Stick) Negative mg/dL (NEG) Urine Blood Moderate (NEG) Urine Nitrite Negative (NEG) Urine Bilirubin Negative (NEG) Urine Urobilinogen Dipstick 0.2 mg/dL (0.2 mg/dL) Urine Leukocyte Esterase Negative (NEG) Urine RBC 6-10 /HPF (0-2) Urine WBC Rare /HPF (0-4) Urine Squamous Epithelial Cells Occ /LPF Urine Bacteria 0 /HPF (0-FEW) Glucose (Fingerstick) 108 mg/dL (70-99) White Blood Count 8.5 x10^3/uL (4.0-11.0) Red Blood Count 4.95 x10^6/uL (4.30-5.70) Hemoglobin 15.8 g/dL (13.0-17.5) Hematocrit 46.0 % (39.0-53.0) Mean Corpuscular Volume 93 fL (79-100) Mean Corpuscular Hemoglobin 32 pg (25-35) Mean Corpuscular Hemoglobin Concent 34 g/dL (31-37) Red Cell Distribution Width 15.6 % (11.5-14.5) Platelet Count 290 x10^3/uL (140-400) Neutrophils (%) (Auto) 78 % (31-73) Lymphocytes (%) (Auto) 11 % (24-48) Monocytes (%) (Auto) 8 % (0-9) Eosinophils (%) (Auto) 2 % (0-3) Basophils (%) (Auto) 1 % (0-3) Neutrophils # (Auto) 6.7 x10^3uL (1.8-7.7) Lymphocytes # (Auto) 1.0 x10^3/uL (1.0-4.8) Monocytes # (Auto) 0.7 x10^3/uL (0.0-1.1) Eosinophils # (Auto) 0.2 x10^3/uL (0.0-0.7) Basophils # (Auto) 0.1 x10^3/uL (0.0-0.2) Prothrombin Time 12.8 SEC (11.7-14.0) Prothromb Time International Ratio 1.0 (0.8-1.1) Sodium Level 135 mmol/L (136-145) Potassium Level 4.1 mmol/L (3.5-5.1) Chloride Level 97 mmol/L (98-107) Carbon Dioxide Level 32 mmol/L (21-32) Anion Gap 6 (6-14) Blood Urea Nitrogen 24 mg/dL (8-26) Creatinine 1.6 mg/dL (0.7-1.3) Estimated GFR (Cockcroft-Gault) 42.5 BUN/Creatinine Ratio 15 (6-20) Glucose Level 104 mg/dL (70-99) Calcium Level 9.6 mg/dL (8.5-10.1) Magnesium Level 1.8 mg/dL (1.8-2.4) Total Bilirubin 1.0 mg/dL (0.2-1.0) Aspartate Amino Transf (AST/SGOT) 17 U/L (15-37) Alanine Aminotransferase (ALT/SGPT) 22 U/L (16-63) Alkaline Phosphatase 75 U/L (46-116) Troponin I Quantitative < 0.017 ng/mL (0.000-0.055) < 0.017 ng/mL (0.000-0.055) Total Protein 8.1 g/dL (6.4-8.2) Albumin 3.6 g/dL (3.4-5.0) Albumin/Globulin Ratio 0.8 (1.0-1.7) Thyroid Stimulating Hormone (TSH) 2.402 uIU/mL (0.358-3.74) Test 11/21/17 07:00 White Blood Count 6.6 x10^3/uL (4.0-11.0) Red Blood Count 4.76 x10^6/uL (4.30-5.70) Hemoglobin 15.1 g/dL (13.0-17.5) Hematocrit 44.1 % (39.0-53.0) Mean Corpuscular Volume 93 fL (79-100) Mean Corpuscular Hemoglobin 32 pg (25-35) Mean Corpuscular Hemoglobin Concent 34 g/dL (31-37) Red Cell Distribution Width 15.6 % (11.5-14.5) Platelet Count 242 x10^3/uL (140-400) Neutrophils (%) (Auto) 75 % (31-73) Lymphocytes (%) (Auto) 12 % (24-48) Monocytes (%) (Auto) 10 % (0-9) Eosinophils (%) (Auto) 3 % (0-3) Basophils (%) (Auto) 1 % (0-3) Neutrophils # (Auto) 4.9 x10^3uL (1.8-7.7) Lymphocytes # (Auto) 0.8 x10^3/uL (1.0-4.8) Monocytes # (Auto) 0.6 x10^3/uL (0.0-1.1) Eosinophils # (Auto) 0.2 x10^3/uL (0.0-0.7) Basophils # (Auto) 0.0 x10^3/uL (0.0-0.2) Sodium Level 138 mmol/L (136-145) Potassium Level 3.8 mmol/L (3.5-5.1) Chloride Level 98 mmol/L (98-107) Carbon Dioxide Level 34 mmol/L (21-32) Anion Gap 6 (6-14) Blood Urea Nitrogen 30 mg/dL (8-26) Creatinine 1.3 mg/dL (0.7-1.3) Estimated GFR (Cockcroft-Gault) 54.0 BUN/Creatinine Ratio 23 (6-20) Glucose Level 103 mg/dL (70-99) Calcium Level 9.4 mg/dL (8.5-10.1) Total Bilirubin 1.1 mg/dL (0.2-1.0) Aspartate Amino Transf (AST/SGOT) 18 U/L (15-37) Alanine Aminotransferase (ALT/SGPT) 21 U/L (16-63) Alkaline Phosphatase 63 U/L (46-116) Total Protein 7.4 g/dL (6.4-8.2) Albumin 3.4 g/dL (3.4-5.0) Albumin/Globulin Ratio 0.9 (1.0-1.7) Laboratory Tests Test 11/20/17 13:20 11/20/17 13:28 11/20/17 13:53 11/20/17 20:45 Urine Collection Type Unknown Urine Color Yellow Urine Clarity Clear Urine pH 5.0 Urine Specific [place] 1.010 Urine Protein Negative mg/dL (NEG-TRACE) Urine Glucose (UA) Negative mg/dL (NEG) Urine Ketones (Stick) Negative mg/dL (NEG) Urine Blood Moderate (NEG) Urine Nitrite Negative (NEG) Urine Bilirubin Negative (NEG) Urine Urobilinogen Dipstick 0.2 mg/dL (0.2 mg/dL) Urine Leukocyte Esterase Negative (NEG) Urine RBC 6-10 /HPF (0-2) Urine WBC Rare /HPF (0-4) Urine Squamous Epithelial Cells Occ /LPF Urine Bacteria 0 /HPF (0-FEW) Glucose (Fingerstick) 108 mg/dL (70-99) White Blood Count 8.5 x10^3/uL (4.0-11.0) Red Blood Count 4.95 x10^6/uL (4.30-5.70) Hemoglobin 15.8 g/dL (13.0-17.5) Hematocrit 46.0 % (39.0-53.0) Mean Corpuscular Volume 93 fL (79-100) Mean Corpuscular Hemoglobin 32 pg (25-35) Mean Corpuscular Hemoglobin Concent 34 g/dL (31-37) Red Cell Distribution Width 15.6 % (11.5-14.5) Platelet Count 290 x10^3/uL (140-400) Neutrophils (%) (Auto) 78 % (31-73) Lymphocytes (%) (Auto) 11 % (24-48) Monocytes (%) (Auto) 8 % (0-9) Eosinophils (%) (Auto) 2 % (0-3) Basophils (%) (Auto) 1 % (0-3) Neutrophils # (Auto) 6.7 x10^3uL (1.8-7.7) Lymphocytes # (Auto) 1.0 x10^3/uL (1.0-4.8) Monocytes # (Auto) 0.7 x10^3/uL (0.0-1.1) Eosinophils # (Auto) 0.2 x10^3/uL (0.0-0.7) Basophils # (Auto) 0.1 x10^3/uL (0.0-0.2) Prothrombin Time 12.8 SEC (11.7-14.0) Prothromb Time International Ratio 1.0 (0.8-1.1) Sodium Level 135 mmol/L (136-145) Potassium Level 4.1 mmol/L (3.5-5.1) Chloride Level 97 mmol/L (98-107) Carbon Dioxide Level 32 mmol/L (21-32) Anion Gap 6 (6-14) Blood Urea Nitrogen 24 mg/dL (8-26) Creatinine 1.6 mg/dL (0.7-1.3) Estimated GFR (Cockcroft-Gault) 42.5 BUN/Creatinine Ratio 15 (6-20) Glucose Level 104 mg/dL (70-99) Calcium Level 9.6 mg/dL (8.5-10.1) Magnesium Level 1.8 mg/dL (1.8-2.4) Total Bilirubin 1.0 mg/dL (0.2-1.0) Aspartate Amino Transf (AST/SGOT) 17 U/L (15-37) Alanine Aminotransferase (ALT/SGPT) 22 U/L (16-63) Alkaline Phosphatase 75 U/L (46-116) Troponin I Quantitative < 0.017 ng/mL (0.000-0.055) < 0.017 ng/mL (0.000-0.055) Total Protein 8.1 g/dL (6.4-8.2) Albumin 3.6 g/dL (3.4-5.0) Albumin/Globulin Ratio 0.8 (1.0-1.7) Thyroid Stimulating Hormone (TSH) 2.402 uIU/mL (0.358-3.74) Test 11/21/17 07:00 White Blood Count 6.6 x10^3/uL (4.0-11.0) Red Blood Count 4.76 x10^6/uL (4.30-5.70) Hemoglobin 15.1 g/dL (13.0-17.5) Hematocrit 44.1 % (39.0-53.0) Mean Corpuscular Volume 93 fL (79-100) Mean Corpuscular Hemoglobin 32 pg (25-35) Mean Corpuscular Hemoglobin Concent 34 g/dL (31-37) Red Cell Distribution Width 15.6 % (11.5-14.5) Platelet Count 242 x10^3/uL (140-400) Neutrophils (%) (Auto) 75 % (31-73) Lymphocytes (%) (Auto) 12 % (24-48) Monocytes (%) (Auto) 10 % (0-9) Eosinophils (%) (Auto) 3 % (0-3) Basophils (%) (Auto) 1 % (0-3) Neutrophils # (Auto) 4.9 x10^3uL (1.8-7.7) Lymphocytes # (Auto) 0.8 x10^3/uL (1.0-4.8) Monocytes # (Auto) 0.6 x10^3/uL (0.0-1.1) Eosinophils # (Auto) 0.2 x10^3/uL (0.0-0.7) Basophils # (Auto) 0.0 x10^3/uL (0.0-0.2) Sodium Level 138 mmol/L (136-145) Potassium Level 3.8 mmol/L (3.5-5.1) Chloride Level 98 mmol/L (98-107) Carbon Dioxide Level 34 mmol/L (21-32) Anion Gap 6 (6-14) Blood Urea Nitrogen 30 mg/dL (8-26) Creatinine 1.3 mg/dL (0.7-1.3) Estimated GFR (Cockcroft-Gault) 54.0 BUN/Creatinine Ratio 23 (6-20) Glucose Level 103 mg/dL (70-99) Calcium Level 9.4 mg/dL (8.5-10.1) Total Bilirubin 1.1 mg/dL (0.2-1.0) Aspartate Amino Transf (AST/SGOT) 18 U/L (15-37) Alanine Aminotransferase (ALT/SGPT) 21 U/L (16-63) Alkaline Phosphatase 63 U/L (46-116) Total Protein 7.4 g/dL (6.4-8.2) Albumin 3.4 g/dL (3.4-5.0) Albumin/Globulin Ratio 0.9 (1.0-1.7) Medications Current Medications Ondansetron HCl (Zofran) 4 mg PRN Q8HRS PRN IV NAUSEA/VOMITING; Start 11/20/17 at 15:00; Stop 11/21/17 at 09:14; Status DC Fentanyl Citrate (Fentanyl 2ml Vial) 50 mcg PRN Q1HR PRN IV PAIN; Start at 15:00; Stop 11/21/17 at 14:59 Acetaminophen (Tylenol) 650 mg PRN Q4HRS PRN PO FEVER Last administered on 11/20at 19:45; Start 11/20/17 at 15:00; Stop 11/21/17 at 14:59 Atorvastatin Calcium (Lipitor) 30 mg HS PO ; Start 11/21/17 at 21:00 Furosemide (Lasix) 20 mg DAILY PO Last administered on 11/21/17at 10:29; Start 11/21/17 at 09:00 Losartan Potassium (Cozaar) 25 mg DAILY PO Last administered on 11/21/17at 10:29 ; Start 11/21/17 at 09:00 Tamsulosin HCl (Flomax) 0.4 mg DAILY PO Last administered on 11/21/17at 10:28; Start 11/21/17 at 09:00 Fish Oil (Fish Oil) 1,000 mg DAILY PO Last administered on 11/21/17at 10:27; Start 11/21/17 at 09:00 Potassium Chloride (Klor-Con) 20 meq DAILY PO Last administered on 11/21/17at 10 :28; Start 11/21/17 at 09:00 Ondansetron HCl (Zofran) 4 mg PRN Q6HRS PRN IV NAUSEA/VOMITING; Start 11/21/17 at 09:15 Meclizine HCl (Antivert) 12.5 mg PRN Q6HRS PRN PO DIZZINESS; Start 11/21/17 at 09:15 Aspirin (Ecotrin) 81 mg DAILYWBKFT PO Last administered on 11/21/17at 10:31; Start 11/21/17 at 10:30 Active Scripts Active Reported Lasix (Furosemide) 20 Mg Tablet 1 Tab PO DAILY Atorvastatin Calcium 20 Mg Tablet 30 Mg PO HS Losartan Potassium 25 Mg Tablet 25 Mg PO Flomax (Tamsulosin Hcl) 0.4 Mg Cap.er.24h 0.4 Mg PO Potassium 99 Mg Tablet 20 Mg PO DAILY Fish Oil ([place]-3 Fatty Acids) 500 Mg Capsule 99 Mg PO BID Vitals/I & O Vital Sign - Last 24 Hours 11/20/17 11/20/17 11/20/17 11/20/17 13:10 15:15 16:13 16:43 Pulse 86 72 70 74 Resp 20 18 18 18 B/P (MAP) 137/73 (94) Pulse Ox 96 95 96 92 O2 Delivery Room Air 11/20/17 11/20/17 11/20/17 11/21/17 19:00 19:48 23:00 03:00 Temp 97.8 97.5 97.6 97.8 97.5 97.6 Pulse 79 72 66 Resp 18 20 18 B/P (MAP) 108/53 (71) 139/78 (98) 117/70 (86) Pulse Ox 94 94 93 O2 Delivery Room Air 11/21/17 11/21/17 11/21/17 11/21/17 07:00 07:05 07:10 08:00 Temp 97.8 97.8 Pulse 67 69 77 Resp 20 20 20 B/P (MAP) 132/89 (103) 112/85 (94) 124/67 (86) Pulse Ox 98 100 96 O2 Delivery Room Air Room Air Room Air Room Air 11/21/17 11/21/17 11/21/17 11/21/17 10:29 10:45 11:50 11:59 Temp 97.8 97.8 97.8 97.8 Pulse 70 70 70 Resp 20 20 B/P (MAP) 122/84 122/84 (97) 122/84 (97) Pulse Ox 99 99 O2 Delivery Room Air Room Air Room Air 11/21/17 11:59 O2 Delivery Room Air Intake and Output 11/20/17 11/20/17 11/21/17 15:00 23:00 07:00 Intake Total 1100 ml 240 ml Balance 1100 ml 240 ml KIN OHARA MD Nov 21, 2017 12:44
[2017-11-21] MEDS ORDERED: GADOBUTROL 10 MMOL/10 ML VIAL IV ONE (14:15)
--- NOTE | 2017-11-21 14:46 | RAD ---
EXAMINATION: Magnetic resonance imaging (MRI) of the brain and brainstem without and with contrast 11/21/2017 1:52 PM HISTORY: Dizziness with left arm tingling and numbness. Headaches. History of colon cancer. TECHNIQUE: Multiplanar multi-weighted MRI of the brain and brainstem was performed without and with intravenous contrast using the general brain protocol. Contrast information: 9 mL Gadolinium based contrast COMPARISON: CT head November 20, 2017, MRI brain July 24, 2014 FINDINGS: The scalp and calvarium are normal. The superior sagittal sinus demonstrates normal venous flow. The corpus callosum is normal in shape and signal intensity. The posterior fossa is unremarkable. The pituitary and sella are normal. The brainstem and craniocervical junction are unremarkable. Diffusion weighted images reveal no hyperintensities to suggest acute cerebral infarction. The susceptibility weighted sequences reveal no evidence of acute or chronic hemorrhage. The ventricles are normal in size and position without evidence of hydrocephalus. Mild generalized cerebral atrophy with more focal biparietal atrophy. Few scattered foci of T2/FLAIR signal hyperintensity in the subcortical white matter may reflect age-related degenerative changes. There are no areas of abnormal contrast enhancement. Mild mucosal thickening of the ethmoid air cells and right maxillary sinus noted. The visualized portions of the mastoids are unremarkable. The orbits appear normal. Normal flow voids are demonstrated in the carotid arteries and basilar artery. IMPRESSION: No evidence for acute or subacute ischemia. No evidence for intracranial metastasis. Electronically signed by: Marion Rice MD (11/21/2017 2:43 PM) [id number]
--- NOTE | 2017-11-21 16:27 | PDOC2 ---
NEUROLOGY CONSULT Date of Admission Date of Admission DATE: 11/21/17 TIME: 16:13 Reason for Consult Reason for Consult: IMPRESSION: Dizziness. Vertigo. Left UE numbness. tingling and weakness. Headaches. HTN. HLD CAD. PVD. Cellulitis. Colon cancer. No evidence of acute CVA this time. No evidence of intracranial metastatic disease this time. RECOMMENDATIONS/PLAN: Meclizine 12.5 mg to 25 mg tid. Continue ASA daily. Continue Statin HS. Treat medical diseases. OT/PT. FU with PCP. See ENT for vertigo. HISTORY OF THE PRESENT ILLNESS: 72-y-old male patient with above medical diseases and colon cancer has been having intermittent symptoms of dizziness, headaches, vertigo with sense of room spinning, left UE numbness, tingling and hand weakness for about 3 months. However, his symptoms became worse and more frequent and he was unable to move during episodes, so he came to the ER of [facility] this time for further evaluation. PAST MEDICAL HISTORY Cardiovascular: CAD (nonobstructive with prior LHC), HTN, Hyperlipidemia, Other (venous insufficiency) Pulmonary: No pertinent hx CENTRAL NERVOUS SYSTEM: Other (No pertinent history) GI: Other (colon CA) Heme/Onc: No pertinent hx, Cancer (colon) Musculoskeletal: low back pain (lumbar stenosis), Osteoarthritis, Other (LE cellulitis) Infectious disease: No pertinent hx ENT: No pertinent hx Renal/: Benign prostatic enlarg. Endocrine: No pertinent hx Dermatology: Basal cell PAST SURGICAL HISTORY Colectomy, Colon Resection, Other (LE venous RF ablation; basal cell CA resection; tailbone cyst removal) FAMILY HISTORY Stroke SOCIAL HISTORY Smoke: Quit in . ALCOHOL: none Drugs: None Lives: with Family ALLERGIES Coded Allergies: Codeine (Verified Adverse Reaction, Intermediate, very sleepy, 04/14/16) very sleepy MEDICATIONS: Refer to [facility] REVIEW OF SYSTEMS: Constitutional: No malnutrition, weight loss, cachexia. Head: No traumatic brain or head injury. Skin: No edema, or rash. Ear: No infection. Eyes: No vision loss or color blindness. Nose: No bleeding or purulent discharges. Hearing: Mild hearing decrease. Neck: No injury. Cardiac: CAD, HTN, HLD. Pulmonary: No COPD. GI: No GI ulcer, GI bleeding,. Urinary/genital: No dysuria, incontinence, urinary retention. Endocrinologic: No cousin face, craniofacial dysmorphism, polydactyly. Skeletomuscular: No muscular atrophy, deformity. Neurological: see HP. Psychiatric: Denies drug use/abuse. Otherwise, not [id number] review of systems. PHYSICAL EXAMINATION: General appearance is in subacute distress. HEENT: Normocephalic and nontraumatic. Eyes, nose, ears, and throat are unremarkable. Neck is supple. No lymphadenopathy. No crepitus. Cardiovascular: S1, S2, regular rate and rhythm. Pulmonary: Clear to auscultation bilaterally. Abdomen: Bowel sounds are positive. Abdomen is soft, nontender, and nondistended. Extremities: No rash, lesions, or edema. No restriction of range of motion NEUROLOGICAL EXAMINATION: Alert Oriented to time, place and person. PERRL. EOMI. CN: no focal findings. Muscle tone: within normal. Muscle strength: 5- DTR: 1-2 Plantar reflex: Neutral response bilaterally Gait: not examined in bed. Sensory exam: no abnormal findings. No acute cerebellar signs elicited. F-T-N test fine. Current Medications Current Medications Current Medications Ondansetron HCl (Zofran) 4 mg PRN Q8HRS PRN IV NAUSEA/VOMITING; Start 11/20/17 at 15:00; Stop 11/21/17 at 09:14; Status DC Fentanyl Citrate (Fentanyl 2ml Vial) 50 mcg PRN Q1HR PRN IV PAIN; Start at 15:00; Stop 11/21/17 at 14:59; Status DC Acetaminophen (Tylenol) 650 mg PRN Q4HRS PRN PO FEVER Last administered on 11/20at 19:45; Start 11/20/17 at 15:00; Stop 11/21/17 at 14:59; Status DC Atorvastatin Calcium (Lipitor) 30 mg HS PO ; Start 11/21/17 at 21:00 Furosemide (Lasix) 20 mg DAILY PO Last administered on 11/21/17at 10:29; Start 11/21/17 at 09:00 Losartan Potassium (Cozaar) 25 mg DAILY PO Last administered on 11/21/17at 10:29 ; Start 11/21/17 at 09:00 Tamsulosin HCl (Flomax) 0.4 mg DAILY PO Last administered on 11/21/17at 10:28; Start 11/21/17 at 09:00 Fish Oil (Fish Oil) 1,000 mg DAILY PO Last administered on 11/21/17at 10:27; Start 11/21/17 at 09:00 Potassium Chloride (Klor-Con) 20 meq DAILY PO Last administered on 11/21/17at 10 :28; Start 11/21/17 at 09:00 Ondansetron HCl (Zofran) 4 mg PRN Q6HRS PRN IV NAUSEA/VOMITING; Start 11/21/17 at 09:15 Meclizine HCl (Antivert) 12.5 mg PRN Q6HRS PRN PO DIZZINESS; Start 11/21/17 at 09:15 Aspirin (Ecotrin) 81 mg DAILYWBKFT PO Last administered on 11/21/17at 10:31; Start 11/21/17 at 10:30 Gadobutrol (Gadavist) 9 mmol 1X ONCE IV Last administered on 11/21/17at 14:21; Start 11/21/17 at 14:15; Stop 11/21/17 at 14:16; Status DC Active Scripts Active Reported Lasix (Furosemide) 20 Mg Tablet 1 Tab PO DAILY Atorvastatin Calcium 20 Mg Tablet 30 Mg PO HS Losartan Potassium 25 Mg Tablet 25 Mg PO Flomax (Tamsulosin Hcl) 0.4 Mg Cap.er.24h 0.4 Mg PO Potassium 99 Mg Tablet 20 Mg PO DAILY Fish Oil ([place]-3 Fatty Acids) 500 Mg Capsule 99 Mg PO BID Allergies Allergies: Allergies Coded Allergies Type Severity Reaction Last Updated Verified codeine Adverse Reaction Intermediate very sleepy 04/14/16 Yes ROS Review of System The patient denies any associated fevers, chills, headache, ear pain, rhinorrhea , sore throat, stiff neck, productive cough, chest pain, shortness of breath, back or flank pain, abdominal pain, nausea, vomiting, diarrhea, constipation, dysuria, rash, numbness, weakness, tingling, incontinence, difficulty ambulating, or diaphoresis. Physical Exam Physical Exam General: Well developed, well nourished, no acute distress, well appearing HEENT: Pupils equally round and reactive to light, EOMI, no discharge, normal conjunctiva Neck: Supple, no nuchal rigidity, no JVD, trachea midline, no tenderness Cardiac: RRR, no murmurs, no gallops, no rubs Chest/Lungs: CTAB, no wheeze, no rhonchi, no crackles Abdomen: soft, non-distended, no guarding, no peritoneal signs, non-tender Back: No tenderness Extremities: no edema, pulses intact, non-tender,capillary refill <3 sec bilateral upper and lower extremities, Neuro: Alert and oriented x 4, no focal deficits, normal speech Vitals Vitals: Vital Signs Date Time Temp Pulse Resp B/P (MAP) Pulse Ox O2 Delivery O2 Flow Rate FiO2 11/21/17 15:00 97.8 74 20 124/79 (94) 99 Room Air 97.8 Labs Labs Laboratory Tests Test 11/20/17 13:20 11/20/17 13:28 11/20/17 13:53 11/20/17 20:45 Urine Collection Type Unknown Urine Color Yellow Urine Clarity Clear Urine pH 5.0 Urine Specific [place] 1.010 Urine Protein Negative mg/dL (NEG-TRACE) Urine Glucose (UA) Negative mg/dL (NEG) Urine Ketones (Stick) Negative mg/dL (NEG) Urine Blood Moderate (NEG) Urine Nitrite Negative (NEG) Urine Bilirubin Negative (NEG) Urine Urobilinogen Dipstick 0.2 mg/dL (0.2 mg/dL) Urine Leukocyte Esterase Negative (NEG) Urine RBC 6-10 /HPF (0-2) Urine WBC Rare /HPF (0-4) Urine Squamous Epithelial Cells Occ /LPF Urine Bacteria 0 /HPF (0-FEW) Glucose (Fingerstick) 108 mg/dL (70-99) White Blood Count 8.5 x10^3/uL (4.0-11.0) Red Blood Count 4.95 x10^6/uL (4.30-5.70) Hemoglobin 15.8 g/dL (13.0-17.5) Hematocrit 46.0 % (39.0-53.0) Mean Corpuscular Volume 93 fL (79-100) Mean Corpuscular Hemoglobin 32 pg (25-35) Mean Corpuscular Hemoglobin Concent 34 g/dL (31-37) Red Cell Distribution Width 15.6 % (11.5-14.5) Platelet Count 290 x10^3/uL (140-400) Neutrophils (%) (Auto) 78 % (31-73) Lymphocytes (%) (Auto) 11 % (24-48) Monocytes (%) (Auto) 8 % (0-9) Eosinophils (%) (Auto) 2 % (0-3) Basophils (%) (Auto) 1 % (0-3) Neutrophils # (Auto) 6.7 x10^3uL (1.8-7.7) Lymphocytes # (Auto) 1.0 x10^3/uL (1.0-4.8) Monocytes # (Auto) 0.7 x10^3/uL (0.0-1.1) Eosinophils # (Auto) 0.2 x10^3/uL (0.0-0.7) Basophils # (Auto) 0.1 x10^3/uL (0.0-0.2) Prothrombin Time 12.8 SEC (11.7-14.0) Prothromb Time International Ratio 1.0 (0.8-1.1) Sodium Level 135 mmol/L (136-145) Potassium Level 4.1 mmol/L (3.5-5.1) Chloride Level 97 mmol/L (98-107) Carbon Dioxide Level 32 mmol/L (21-32) Anion Gap 6 (6-14) Blood Urea Nitrogen 24 mg/dL (8-26) Creatinine 1.6 mg/dL (0.7-1.3) Estimated GFR (Cockcroft-Gault) 42.5 BUN/Creatinine Ratio 15 (6-20) Glucose Level 104 mg/dL (70-99) Calcium Level 9.6 mg/dL (8.5-10.1) Magnesium Level 1.8 mg/dL (1.8-2.4) Total Bilirubin 1.0 mg/dL (0.2-1.0) Aspartate Amino Transf (AST/SGOT) 17 U/L (15-37) Alanine Aminotransferase (ALT/SGPT) 22 U/L (16-63) Alkaline Phosphatase 75 U/L (46-116) Troponin I Quantitative < 0.017 ng/mL (0.000-0.055) < 0.017 ng/mL (0.000-0.055) Total Protein 8.1 g/dL (6.4-8.2) Albumin 3.6 g/dL (3.4-5.0) Albumin/Globulin Ratio 0.8 (1.0-1.7) Thyroid Stimulating Hormone (TSH) 2.402 uIU/mL (0.358-3.74) Test 11/21/17 07:00 White Blood Count 6.6 x10^3/uL (4.0-11.0) Red Blood Count 4.76 x10^6/uL (4.30-5.70) Hemoglobin 15.1 g/dL (13.0-17.5) Hematocrit 44.1 % (39.0-53.0) Mean Corpuscular Volume 93 fL (79-100) Mean Corpuscular Hemoglobin 32 pg (25-35) Mean Corpuscular Hemoglobin Concent 34 g/dL (31-37) Red Cell Distribution Width 15.6 % (11.5-14.5) Platelet Count 242 x10^3/uL (140-400) Neutrophils (%) (Auto) 75 % (31-73) Lymphocytes (%) (Auto) 12 % (24-48) Monocytes (%) (Auto) 10 % (0-9) Eosinophils (%) (Auto) 3 % (0-3) Basophils (%) (Auto) 1 % (0-3) Neutrophils # (Auto) 4.9 x10^3uL (1.8-7.7) Lymphocytes # (Auto) 0.8 x10^3/uL (1.0-4.8) Monocytes # (Auto) 0.6 x10^3/uL (0.0-1.1) Eosinophils # (Auto) 0.2 x10^3/uL (0.0-0.7) Basophils # (Auto) 0.0 x10^3/uL (0.0-0.2) Sodium Level 138 mmol/L (136-145) Potassium Level 3.8 mmol/L (3.5-5.1) Chloride Level 98 mmol/L (98-107) Carbon Dioxide Level 34 mmol/L (21-32) Anion Gap 6 (6-14) Blood Urea Nitrogen 30 mg/dL (8-26) Creatinine 1.3 mg/dL (0.7-1.3) Estimated GFR (Cockcroft-Gault) 54.0 BUN/Creatinine Ratio 23 (6-20) Glucose Level 103 mg/dL (70-99) Calcium Level 9.4 mg/dL (8.5-10.1) Total Bilirubin 1.1 mg/dL (0.2-1.0) Aspartate Amino Transf (AST/SGOT) 18 U/L (15-37) Alanine Aminotransferase (ALT/SGPT) 21 U/L (16-63) Alkaline Phosphatase 63 U/L (46-116) Total Protein 7.4 g/dL (6.4-8.2) Albumin 3.4 g/dL (3.4-5.0) Albumin/Globulin Ratio 0.9 (1.0-1.7) Laboratory Tests Test 11/20/17 20:45 11/21/17 07:00 Troponin I Quantitative < 0.017 ng/mL (0.000-0.055) White Blood Count 6.6 x10^3/uL (4.0-11.0) Red Blood Count 4.76 x10^6/uL (4.30-5.70) Hemoglobin 15.1 g/dL (13.0-17.5) Hematocrit 44.1 % (39.0-53.0) Mean Corpuscular Volume 93 fL (79-100) Mean Corpuscular Hemoglobin 32 pg (25-35) Mean Corpuscular Hemoglobin Concent 34 g/dL (31-37) Red Cell Distribution Width 15.6 % (11.5-14.5) Platelet Count 242 x10^3/uL (140-400) Neutrophils (%) (Auto) 75 % (31-73) Lymphocytes (%) (Auto) 12 % (24-48) Monocytes (%) (Auto) 10 % (0-9) Eosinophils (%) (Auto) 3 % (0-3) Basophils (%) (Auto) 1 % (0-3) Neutrophils # (Auto) 4.9 x10^3uL (1.8-7.7) Lymphocytes # (Auto) 0.8 x10^3/uL (1.0-4.8) Monocytes # (Auto) 0.6 x10^3/uL (0.0-1.1) Eosinophils # (Auto) 0.2 x10^3/uL (0.0-0.7) Basophils # (Auto) 0.0 x10^3/uL (0.0-0.2) Sodium Level 138 mmol/L (136-145) Potassium Level 3.8 mmol/L (3.5-5.1) Chloride Level 98 mmol/L (98-107) Carbon Dioxide Level 34 mmol/L (21-32) Anion Gap 6 (6-14) Blood Urea Nitrogen 30 mg/dL (8-26) Creatinine 1.3 mg/dL (0.7-1.3) Estimated GFR (Cockcroft-Gault) 54.0 BUN/Creatinine Ratio 23 (6-20) Glucose Level 103 mg/dL (70-99) Calcium Level 9.4 mg/dL (8.5-10.1) Total Bilirubin 1.1 mg/dL (0.2-1.0) Aspartate Amino Transf (AST/SGOT) 18 U/L (15-37) Alanine Aminotransferase (ALT/SGPT) 21 U/L (16-63) Alkaline Phosphatase 63 U/L (46-116) Total Protein 7.4 g/dL (6.4-8.2) Albumin 3.4 g/dL (3.4-5.0) Albumin/Globulin Ratio 0.9 (1.0-1.7) ARUN CASTRO MD Nov 21, 2017 16:27
[2017-11-21] MEDS ORDERED: ATORVASTATIN CALCIUM 20 MG TABLET PO SCH (21:00)
[2017-11-22 02:41] VITALS: BP 115/63
[2017-11-22 07:00] VITALS: BP 114/64
[2017-11-22] MEDS ORDERED: MECL12.52 PO (09:33)
[2017-11-22] MEDS: OMEGA-3 FATTY ACIDS/FISH OIL 1,000 MG CAPSULE. PO SCH (10:40)
[2017-11-22] MEDS: ASPIRIN ENTERIC COATED 81 MG TABLET.DR. PO SCH (10:41)
[2017-11-22] MEDS: FUROSEMIDE 20 MG TABLET PO SCH (10:41)
[2017-11-22] MEDS: TAMSULOSIN 0.4 MG CAP.ER.24H. PO SCH (10:42)
[2017-11-22] MEDS: POTASSIUM CHLORIDE 20 MEQ TABLET.ER. PO SCH (10:43)
[2017-11-22] MEDS: LOSARTAN POTASSIUM 25 MG TABLET. PO SCH (10:44)
[2017-11-22 11:00] VITALS: BP 104/62
--- NOTE | 2017-11-22 11:00 | PDOC3 ---
Discharge Summary Visit Information Date of Admission: Nov 21, 2017 Date of Discharge: Nov 22, 2017 Admitting Diagnosis Comment: dizziness Negative orthostasis AK I, VMN Hyperkalemia secondary to above MUltiple co morbidities Final Diagnosis Problems Medical Problems: (1) Dizziness Status: Acute Brief Hospital Course Allergies Allergies Coded Allergies Type Severity Reaction Last Updated Verified codeine Adverse Reaction Intermediate very sleepy 04/14/16 Yes Vital Signs Vital Signs Date Time Temp Pulse Resp B/P (MAP) Pulse Ox O2 Delivery O2 Flow Rate FiO2 11/22/17 10:44 63 114/64 11/22/17 07:00 97.6 16 98 Room Air 97.6 Lab Results Laboratory Tests Test 11/20/17 13:20 11/20/17 13:28 11/20/17 13:53 11/20/17 20:45 Urine Collection Type Unknown Urine Color Yellow Urine Clarity Clear Urine pH 5.0 Urine Specific [place] 1.010 Urine Protein Negative mg/dL (NEG-TRACE) Urine Glucose (UA) Negative mg/dL (NEG) Urine Ketones (Stick) Negative mg/dL (NEG) Urine Blood Moderate (NEG) Urine Nitrite Negative (NEG) Urine Bilirubin Negative (NEG) Urine Urobilinogen Dipstick 0.2 mg/dL (0.2 mg/dL) Urine Leukocyte Esterase Negative (NEG) Urine RBC 6-10 /HPF (0-2) Urine WBC Rare /HPF (0-4) Urine Squamous Epithelial Cells Occ /LPF Urine Bacteria 0 /HPF (0-FEW) Glucose (Fingerstick) 108 mg/dL (70-99) White Blood Count 8.5 x10^3/uL (4.0-11.0) Red Blood Count 4.95 x10^6/uL (4.30-5.70) Hemoglobin 15.8 g/dL (13.0-17.5) Hematocrit 46.0 % (39.0-53.0) Mean Corpuscular Volume 93 fL (79-100) Mean Corpuscular Hemoglobin 32 pg (25-35) Mean Corpuscular Hemoglobin Concent 34 g/dL (31-37) Red Cell Distribution Width 15.6 % (11.5-14.5) Platelet Count 290 x10^3/uL (140-400) Neutrophils (%) (Auto) 78 % (31-73) Lymphocytes (%) (Auto) 11 % (24-48) Monocytes (%) (Auto) 8 % (0-9) Eosinophils (%) (Auto) 2 % (0-3) Basophils (%) (Auto) 1 % (0-3) Neutrophils # (Auto) 6.7 x10^3uL (1.8-7.7) Lymphocytes # (Auto) 1.0 x10^3/uL (1.0-4.8) Monocytes # (Auto) 0.7 x10^3/uL (0.0-1.1) Eosinophils # (Auto) 0.2 x10^3/uL (0.0-0.7) Basophils # (Auto) 0.1 x10^3/uL (0.0-0.2) Prothrombin Time 12.8 SEC (11.7-14.0) Prothromb Time International Ratio 1.0 (0.8-1.1) Sodium Level 135 mmol/L (136-145) Potassium Level 4.1 mmol/L (3.5-5.1) Chloride Level 97 mmol/L (98-107) Carbon Dioxide Level 32 mmol/L (21-32) Anion Gap 6 (6-14) Blood Urea Nitrogen 24 mg/dL (8-26) Creatinine 1.6 mg/dL (0.7-1.3) Estimated GFR (Cockcroft-Gault) 42.5 BUN/Creatinine Ratio 15 (6-20) Glucose Level 104 mg/dL (70-99) Calcium Level 9.6 mg/dL (8.5-10.1) Magnesium Level 1.8 mg/dL (1.8-2.4) Total Bilirubin 1.0 mg/dL (0.2-1.0) Aspartate Amino Transf (AST/SGOT) 17 U/L (15-37) Alanine Aminotransferase (ALT/SGPT) 22 U/L (16-63) Alkaline Phosphatase 75 U/L (46-116) Troponin I Quantitative < 0.017 ng/mL (0.000-0.055) < 0.017 ng/mL (0.000-0.055) Total Protein 8.1 g/dL (6.4-8.2) Albumin 3.6 g/dL (3.4-5.0) Albumin/Globulin Ratio 0.8 (1.0-1.7) Thyroid Stimulating Hormone (TSH) 2.402 uIU/mL (0.358-3.74) Test 11/21/17 07:00 White Blood Count 6.6 x10^3/uL (4.0-11.0) Red Blood Count 4.76 x10^6/uL (4.30-5.70) Hemoglobin 15.1 g/dL (13.0-17.5) Hematocrit 44.1 % (39.0-53.0) Mean Corpuscular Volume 93 fL (79-100) Mean Corpuscular Hemoglobin 32 pg (25-35) Mean Corpuscular Hemoglobin Concent 34 g/dL (31-37) Red Cell Distribution Width 15.6 % (11.5-14.5) Platelet Count 242 x10^3/uL (140-400) Neutrophils (%) (Auto) 75 % (31-73) Lymphocytes (%) (Auto) 12 % (24-48) Monocytes (%) (Auto) 10 % (0-9) Eosinophils (%) (Auto) 3 % (0-3) Basophils (%) (Auto) 1 % (0-3) Neutrophils # (Auto) 4.9 x10^3uL (1.8-7.7) Lymphocytes # (Auto) 0.8 x10^3/uL (1.0-4.8) Monocytes # (Auto) 0.6 x10^3/uL (0.0-1.1) Eosinophils # (Auto) 0.2 x10^3/uL (0.0-0.7) Basophils # (Auto) 0.0 x10^3/uL (0.0-0.2) Sodium Level 138 mmol/L (136-145) Potassium Level 3.8 mmol/L (3.5-5.1) Chloride Level 98 mmol/L (98-107) Carbon Dioxide Level 34 mmol/L (21-32) Anion Gap 6 (6-14) Blood Urea Nitrogen 30 mg/dL (8-26) Creatinine 1.3 mg/dL (0.7-1.3) Estimated GFR (Cockcroft-Gault) 54.0 BUN/Creatinine Ratio 23 (6-20) Glucose Level 103 mg/dL (70-99) Calcium Level 9.4 mg/dL (8.5-10.1) Total Bilirubin 1.1 mg/dL (0.2-1.0) Aspartate Amino Transf (AST/SGOT) 18 U/L (15-37) Alanine Aminotransferase (ALT/SGPT) 21 U/L (16-63) Alkaline Phosphatase 63 U/L (46-116) Total Protein 7.4 g/dL (6.4-8.2) Albumin 3.4 g/dL (3.4-5.0) Albumin/Globulin Ratio 0.9 (1.0-1.7) Brief Hospital Course Mr. Carson is a 72 old white male who lives alone at home, and ambulates with a cane, admitted because of dizziness. Negative orthostasis . Negative MRI of the brain. Negative Workup, comanage with neurology. Cardiology also was doing an echocardiogram of that is all okay, then home today with no new meds except for meclizine when necessary. No arrhythmogenic events Consults performed neurology, cardiology Procedures performed echocardiogram and MRI of the brain Medications meclizine when necessary No PT needs Discharge time less than 30 minutes Discussed with RN and patient Discharge Information Condition at Discharge: Improved, Stable Disposition/Orders: D/C to Home Scheduled Atorvastatin Calcium (Atorvastatin Calcium) 20 Mg Tablet, 30 MG PO HS for FOR CHOLESTEROL, #30 Ref 0 (Reported) Entered as Reported by: TALIA IVEY on 09/10/14 0115 Last Action: Continued on 11/21/17621 by LUZMARIA ROMANO Furosemide (Lasix) 20 Mg Tablet, 1 TAB PO DAILY, #90 Ref 1 (Reported) Entered as Reported by: LUZMARIA ROMANO on 11/20/171926 Last Taken: Unknown Dose on Unknown Date & Time Last Action: Continued on 11/21/17621 by LUZMARIA ROMANO [place]-3 Fatty Acids (Fish Oil) 500 Mg Capsule, 99 MG PO BID, (Reported) Entered as Reported by: SADI GONZALEZ on 02/10/13 1305 Last Action: Converted on 11/21/17621 by LUZMARIA ROMANO Potassium (Potassium) 99 Mg Tablet, 20 MG PO DAILY, (Reported) Entered as Reported by: SADI GONZALEZ on 02/10/13 1306 Last Action: Converted on 11/21/17621 by LUZMARIA ROMANO Scheduled PRN Meclizine Hcl (Meclizine Hcl) 12.5 Mg Tablet, 12.5 MG PO PRN Q6HRS PRN for DIZZINESS for 30 Days Prescribed by: KIN OHARA on 11/22/17 0933 Miscellaneous Medications Losartan Potassium (Losartan Potassium) 25 Mg Tablet, 25 MG PO, (Reported) Entered as Reported by: SADI GONZALEZ on 02/10/131306 Last Action: Continued on 11/21/17621 by LUZMARIA ROMANO Tamsulosin Hcl (Flomax) 0.4 Mg Cap.er.24h, 0.4 MG PO, (Reported) Entered as Reported by: SADI GONZALEZ on 02/10/131306 Last Action: Continued on 11/21/17621 by KIN KELLEY MD Nov 22, 2017 11:00
--- NOTE | 2017-11-22 13:14 | CARD ---
MR#: [id number] Date of Study: 11/22/2017 Ordering Physician: LOLLY REINOSO, Referring Physician: YEMII GRIFFITHS Tech: Yessi Fowler APPROVED REPORT EXAM: Two-dimensional and M-mode echocardiogram with Doppler and color Doppler. Other Information Quality : AverageHR: 80bpm INDICATION Arrhythmia Bubble Study 2D DIMENSIONS RVDd3.0 (2.9-3.5cm)Left Atrium(2D)3.0 (1.6-4.0cm) IVSd1.2 (0.7-1.1cm)Aortic Root(2D)3.4 (2.0-3.7cm) LVDd4.3 (3.9-5.9cm)LVOT Diameter2.1 (1.8-2.4cm) PWd1.1 (0.7-1.1cm)LVDs3.2 (2.5-4.0cm) FS (%) 26.0 %SV41.7 ml LVEF(%)51.4 (>50%) Aortic Valve AoV Peak Nick.184.7cm/sAoV VTI33.7cm AO Peak GR.13.6mmHgLVOT Peak Nick.116.6cm/s AO Mean GR.8mmHgAVA (VMAX)2.26cm2 Mitral Valve MV E Gljkfsqd56.8cm/sMV DECEL [id number] MV A Ftkedjqu09.8cm/sE/A Ratio0.7 Tricuspid Valve TR P. Onatdceu737nu/sRAP DXTADOZY9amGb TR Peak Gr.52azAnVFHJ71msTs Pulmonary Vein PVa [id number] LEFT VENTRICLE The left ventricle is normal size. There is normal left ventricular wall thickness. The left ventricu lar systolic function is normal. The ejection fraction is estimated at 55-60%. There is normal LV seg mental wall motion. Transmitral Doppler flow pattern is Grade I-abnormal relaxation pattern. RIGHT VENTRICLE The right ventricle is normal size. There is normal right ventricular wall thickness. The right ventr icular systolic function is normal. ATRIA The left atrium size is normal. The right atrium size is normal. The interatrial septum is intact wit h no evidence for an atrial septal defect or patent foramen ovale as noted on 2-D or Doppler imaging. AORTIC VALVE The aortic valve is normal in structure and function. Doppler and Color Flow revealed no significant aortic regurgitation. There is no significant aortic valvular stenosis. MITRAL VALVE Mitral annular calcification is borderline. There is no mitral valve stenosis. Doppler and Color Flow revealed no mitral valve regurgitation noted. TRICUSPID VALVE The tricuspid valve is normal in structure and function. Doppler and Color Flow revealed trace tricus pid regurgitation. GREAT VESSELS The aortic root is normal in size. The IVC is normal in size and collapses >50% with inspiration. PERICARDIAL EFFUSION There is no evidence of significant pericardial effusion. Critical Notification Critical Value: No <Conclusion> The left ventricular systolic function is normal. The ejection fraction is estimated at 55-60%. There is normal LV segmental wall motion. Transmitral Doppler flow pattern is Grade I-abnormal relaxation pattern. Doppler and Color Flow revealed trace tricuspid regurgitation. There is no evidence of significant pericardial effusion. Bubble study negative for interatrial shunt. Signed by : Edouard Noguera, Electronically Approved : 11/22/2017 13:13:44
--- NOTE | 2017-11-22 13:20 | PDOC ---
CARDIO Progress Notes Date and Time Date of Service 11/22/2017 Time of Evaluation 1020 Subjective Subjective: No Chest Pain, No shortness of breath, No Palpitations, Other ( vertigo beter today) Vitals Vitals Vital Signs Date Time Temp Pulse Resp B/P (MAP) Pulse Ox O2 Delivery O2 Flow Rate FiO2 11/22/17 11:00 97.8 72 16 104/62 (76) 97 Room Air 97.8 Weight Weight [ ] Input and Output Intake and Output Intake and Output 11/22/17 07:00 Intake Total 900 ml Output Total 300 ml Balance 600 ml Intake Oral 900 ml Output Urine Total 300 ml # Voids 5 Physical Exam HEENT: Neck Supple W Full Motion Chest: Symmetric LUNGS: Clear to Auscultation Heart: S1S2, RRR (SR without significnat ectopies) Abdomen: Soft N/T, Other (colostomy) Extremities: No Calf Tenderness Neurology: alert, oriented, follow commands Assessment Assessment 1. Vertigo/LEDBETTER/LA paresthesia: no lightheadedness. Not related to arrhythmia. Per neurology 2. Arrhythmia: previous [place] PACs. Known. No significant ectopies overnight. Recent event monitor. 3. HTN: remains controlled 4. HLP 5. Hx of colon CA/colostomy 6. Chronic lymphedema 7. Hx of nonobstructive CAD: PDA in 2013. Recommendations 1. If no significant changes to TTE then may DC and follow up in 4 weeks. 2. Continue secondary prevention measures. 3. No prior MPI. Will consider for outpt event monitor for further risk stratification given his significant risk factors. LOLLY REINOSO APRN Nov 22, 2017 13:20
[2017-11-22 15:00] VITALS: BP 108/48
--- NOTE | 2017-11-22 16:30 | PDOC ---
PROGRESS NOTES Assessment Assessment Dizziness. Vertigo. Left UE numbness. tingling and weakness. Headaches. HTN. HLD CAD. PVD. Cellulitis. Colon cancer. No evidence of acute CVA this time. No evidence of intracranial metastatic disease this time. RECOMMENDATIONS/PLAN: Meclizine 12.5 mg to 25 mg tid. Continue ASA daily. Continue Statin HS. Treat medical diseases. OT/PT. FU with PCP. See ENT for vertigo. HISTORY OF THE PRESENT ILLNESS: 72-y-old male patient with above medical diseases and colon cancer has been having intermittent symptoms of dizziness, headaches, vertigo with sense of room spinning, left UE numbness, tingling and hand weakness for about 3 months. However, his symptoms became worse and more frequent and he was unable to move during episodes, so he came to the ER of [facility] this time for further evaluation. He stated his symptoms of dizziness and vertigo are improved on 11/22. PAST MEDICAL HISTORY Cardiovascular: CAD (nonobstructive with prior LHC), HTN, Hyperlipidemia, Other (venous insufficiency) Pulmonary: No pertinent hx CENTRAL NERVOUS SYSTEM: Other (No pertinent history) GI: Other (colon CA) Heme/Onc: No pertinent hx, Cancer (colon) Musculoskeletal: low back pain (lumbar stenosis), Osteoarthritis, Other (LE cellulitis) Infectious disease: No pertinent hx ENT: No pertinent hx Renal/: Benign prostatic enlarg. Endocrine: No pertinent hx Dermatology: Basal cell PAST SURGICAL HISTORY Colectomy, Colon Resection, Other (LE venous RF ablation; basal cell CA resection; tailbone cyst removal) FAMILY HISTORY Stroke SOCIAL HISTORY Smoke: Quit in . ALCOHOL: none Drugs: None Lives: with Family ALLERGIES Coded Allergies: Codeine (Verified Adverse Reaction, Intermediate, very sleepy, 04/14/16) very sleepy MEDICATIONS: Refer to [facility] REVIEW OF SYSTEMS: Constitutional: No malnutrition, weight loss, cachexia. Head: No traumatic brain or head injury. Skin: No edema, or rash. Ear: No infection. Eyes: No vision loss or color blindness. Nose: No bleeding or purulent discharges. Hearing: Mild hearing decrease. Neck: No injury. Cardiac: CAD, HTN, HLD. Pulmonary: No COPD. GI: No GI ulcer, GI bleeding,. Urinary/genital: No dysuria, incontinence, urinary retention. Endocrinologic: No cousin face, craniofacial dysmorphism, polydactyly. Skeletomuscular: No muscular atrophy, deformity. Neurological: see HP. Psychiatric: Denies drug use/abuse. Otherwise, not [id number] review of systems. PHYSICAL EXAMINATION: General appearance is in subacute distress. HEENT: Normocephalic and nontraumatic. Eyes, nose, ears, and throat are unremarkable. Neck is supple. No lymphadenopathy. No crepitus. Cardiovascular: S1, S2, regular rate and rhythm. Pulmonary: Clear to auscultation bilaterally. Abdomen: Bowel sounds are positive. Abdomen is soft, nontender, and nondistended. Extremities: No rash, lesions, or edema. No restriction of range of motion NEUROLOGICAL EXAMINATION: Alert Oriented to time, place and person. PERRL. EOMI. CN: no focal findings. Muscle tone: within normal. Muscle strength: 5- DTR: 1-2 Plantar reflex: Neutral response bilaterally Gait: not examined in chair. Sensory exam: no abnormal findings. No acute cerebellar signs elicited. F-T-N test fine. Objective Objective Vital Signs Date Time Temp Pulse Resp B/P (MAP) Pulse Ox O2 Delivery O2 Flow Rate FiO2 11/22/17 15:00 98.2 83 16 108/48 (68) 91 Room Air 98.2 Intake and Output 11/22/17 07:00 Intake Total 900 ml Output Total 300 ml Balance 600 ml Intake Oral 900 ml Output Urine Total 300 ml # Voids 5 Vitals Signs Vitals VS - Last 72 Hours, by Label Date Time Temp Pulse Resp B/P (MAP) Pulse Ox O2 Delivery O2 Flow Rate FiO2 11/22/17 15:00 98.2 83 16 108/48 (68) 91 Room Air 98.2 11/22/17 11:00 97.8 72 16 104/62 (76) 97 Room Air 97.8 11/22/17 10:44 63 114/64 11/22/17 08:00 Room Air 11/22/17 07:00 97.6 63 16 114/64 (81) 98 Room Air 97.6 11/22/17 02:41 98.1 64 18 115/63 (80) 99 Room Air 98.1 11/21/17 22:39 97.7 78 17 104/58 (73) 97 Room Air 97.7 11/21/17 20:00 Room Air 11/21/17 19:00 97.9 76 18 93/50 (64) 97 Room Air 97.9 11/21/17 15:00 97.8 74 20 124/79 (94) 99 Room Air 97.8 11/21/17 11:59 Room Air 11/21/17 11:59 Room Air 11/21/17 11:50 97.8 70 20 122/84 (97) 99 Room Air 97.8 11/21/17 10:45 97.8 70 20 122/84 (97) 99 Room Air 97.8 11/21/17 10:29 70 122/84 11/21/17 08:00 Room Air 11/21/17 07:10 77 20 124/67 (86) 96 Room Air 11/21/17 07:05 69 20 112/85 (94) 100 Room Air 11/21/17 07:00 97.8 67 20 132/89 (103) 98 Room Air 97.8 Medication Medications Current Medications Atorvastatin Calcium (Lipitor) 30 mg HS PO Last administered on 11/21/17at 20:43 ; Start 11/21/17 at 21:00 Comment Review of Relevant I have reviewed the following items casandra (where applicable) has been applied. ARUN CASTRO MD Nov 22, 2017 16:30
== END 2017-11-22 15:35 | disposition home or self-care (01) | DRG 683 ==
LOC: ER 11:19 → 5 SOUTH 14:46
PROVIDERS: ADMIT Internal Medicine; ATTEND Internal Medicine
DX: N17.0 Acute kidney failure with tubular necrosis (principal); I47.2 Ventricular tachycardia; L03.90 Cellulitis, unspecified; E87.5 Hyperkalemia; I25.10 Atherosclerotic heart disease of native coronary artery without angina pectoris; I10 Essential (primary) hypertension; I89.0 Lymphedema, not elsewhere classified; E86.0 Dehydration; E78.5 Hyperlipidemia, unspecified; I73.9 Peripheral vascular disease, unspecified; Z60.2 Problems related to living alone; M19.90 Unspecified osteoarthritis, unspecified site; Z93.3 Colostomy status; Z85.038 Personal history of other malignant neoplasm of large intestine; Z85.828 Personal history of other malignant neoplasm of skin; Z86.718 Personal history of other venous thrombosis and embolism; Z88.5 Allergy status to narcotic agent; Z79.82 Long term (current) use of aspirin; Z82.3 Family history of stroke
CPT/HCPCS: 99285; C8929; 36415; 70450; 70553; 71045; 80053; 81001; 82962; 83735; 84443; 84484; 85025; 85610; 93005; A9585; J8597; 97110; 97116

== ENCOUNTER 2018-02-12 16:59 | Emergency (ER) | payer MEDICARE ==
[~2018-02-12] VITALS: Ht 182.9 cm; Wt 111.6 kg
[~2018-02-12 16:59] MED LIST changes: +FURO-69 PO; -LOSA25TA5 PO; +LOSA25TA54 PO; +MECL12.52 PO
[2018-02-12] MEDS ORDERED: CLINDAMYCIN 600MG PREMIX 50 ML IV ONE (19:00)
--- NOTE | 2018-02-12 19:41 | PHYS DOC ---
Past Medical History Past Medical History: CAD, Cancer, DVT, Gallstones, Hypertension, Vascular Disease, Other Additional Past Medical Histor: colon cancer, LEG LYMPH EDEMA, CELLULITIS BILAT LEG,CHRONIC LEG SWELLING Past Surgical History: Other Additional Past Surgical Histo: colostomy, cyst removed from tailbone, BILAT LEG VEIN STRIPPING Alcohol Use: Sober Drug Use: None Adult General Chief Complaint Chief Complaint: LOWER EXTREMITY SWELLING HPI HPI Patient is a 72 year old male with PMHx of lymphedema, HTN, HLD, CRC presenting with 5 days of worsening LLE edema. Pt notes his bilateral LE have had increasing redness and warmth for 5 days as well. Pt denies any pain in bilateral LE. Pt not currently taking antibiotics and has not taken antibiotics for cellulitis in 6 months. Pt notes 2 days of clear drainage from the LLE. Pt denies fevers, chills, cough, worsening SOA, nausea, vomiting, abdominal pain, diarrhea, or headache. Pt follows with wound care clinic for management of lymphedema. Pt notes he has been compliant with his Lasix therapy. Review of Systems Review of Systems Constitutional: Denies fever or chills [] Eyes: Denies change in visual acuity, redness, or eye pain [] HENT: Denies nasal congestion or sore throat [] Respiratory: Denies cough, notes SOA. [] Cardiovascular: Denies chest pain or palpitations. [] GI: Denies abdominal pain, nausea, vomiting, bloody stools or diarrhea [] : Denies dysuria or hematuria [] Musculoskeletal: Denies back pain or joint pain [] Integument: Notes LE erythema, warmth.[] Neurologic: Denies headache, focal weakness or sensory changes [] Complete systems were reviewed and found to be within normal limits, except as documented in this note. Current Medications Current Medications Current Medications Medications (Trade) Dose Ordered Sig/Joce Start Time Stop Time Status Last Admin Dose Admin Clindamycin Phosphate 50 ml @ 100 mls/hr 1X ONCE 02/12/18 19:00 02/12/18 19:29 DC 02/12/18 19:44 100 MLS/HR Allergies Allergies Allergies Coded Allergies Type Severity Reaction Last Updated Verified codeine Adverse Reaction Intermediate very sleepy 04/14/16 Yes Physical Exam Physical Exam Constitutional: Well developed, well nourished, no acute distress, non-toxic appearance. [] HENT: Normocephalic, atraumatic, oropharynx moist Eyes: PERRL, EOMI, conjunctiva normal, no discharge. [] Neck: Normal range of motion, no tenderness, supple, no stridor. [] Cardiovascular:Heart rate regular rhythm, no murmur [] Lungs & Thorax: Bilateral breath sounds clear to auscultation [] Abdomen: Soft, no tenderness, nondistended, no guarding. [] Skin: RLE- circumferential erythema distal 1/3 leg. LLE- circumferential erythema to mid calf. Bilateral LE warmth. Clear drainage from LLE. [] Back: No tenderness, no CVA tenderness. [] Extremities: No tenderness, ROM limited in LLE, otherwise normal. Mild edema in RLE to distal femur. Moderate to severe edema in LLE to knee. Palpable DP pulses in BLE. [] Neurologic: Alert and oriented X 3, normal motor function, normal sensory function, no focal deficits noted. [] Psychologic: Affect normal, judgement normal, mood normal. [] Current Patient Data Vital Signs Vital Signs Date Time Temp Pulse Resp B/P (MAP) Pulse Ox O2 Delivery O2 Flow Rate FiO2 02/12/18 20:58 64 16 161/87 (111) 96 Room Air 02/12/18 18:13 97.6 97.6 Lab Values Laboratory Tests Test 02/12/18 19:45 White Blood Count 7.4 x10^3/uL (4.0-11.0) Red Blood Count 4.47 x10^6/uL (4.30-5.70) Hemoglobin 13.9 g/dL (13.0-17.5) Hematocrit 41.7 % (39.0-53.0) Mean Corpuscular Volume 93 fL (79-100) Mean Corpuscular Hemoglobin 31 pg (25-35) Mean Corpuscular Hemoglobin Concent 33 g/dL (31-37) Red Cell Distribution Width 15.2 % (11.5-14.5) H Platelet Count 236 x10^3/uL (140-400) Neutrophils (%) (Auto) 74 % (31-73) H Lymphocytes (%) (Auto) 13 % (24-48) L Monocytes (%) (Auto) 9 % (0-9) Eosinophils (%) (Auto) 3 % (0-3) Basophils (%) (Auto) 1 % (0-3) Neutrophils # (Auto) 5.5 x10^3uL (1.8-7.7) Lymphocytes # (Auto) 1.0 x10^3/uL (1.0-4.8) Monocytes # (Auto) 0.6 x10^3/uL (0.0-1.1) Eosinophils # (Auto) 0.2 x10^3/uL (0.0-0.7) Basophils # (Auto) 0.1 x10^3/uL (0.0-0.2) Prothrombin Time 13.5 SEC (11.7-14.0) Prothrombin Time INR 1.1 (0.8-1.1) PTT 30 SEC (24-38) Sodium Level 140 mmol/L (136-145) Potassium Level 4.3 mmol/L (3.5-5.1) Chloride Level 102 mmol/L (98-107) Carbon Dioxide Level 31 mmol/L (21-32) Anion Gap 7 (6-14) Blood Urea Nitrogen 20 mg/dL (8-26) Creatinine 1.1 mg/dL (0.7-1.3) Estimated GFR (Cockcroft-Gault) 65.4 BUN/Creatinine Ratio 18 (6-20) Glucose Level 96 mg/dL (70-99) Lactic Acid Level 0.9 mmol/L (0.4-2.0) Calcium Level 9.2 mg/dL (8.5-10.1) Magnesium Level 2.1 mg/dL (1.8-2.4) Total Bilirubin 0.5 mg/dL (0.2-1.0) Aspartate Amino Transferase (AST) 15 U/L (15-37) Alanine Aminotransferase (ALT) 21 U/L (16-63) Alkaline Phosphatase 79 U/L (46-116) YK-Omk-T-Type Natriuretic Peptide 32 pg/mL (0-124) Total Protein 7.3 g/dL (6.4-8.2) Albumin 3.4 g/dL (3.4-5.0) Albumin/Globulin Ratio 0.9 (1.0-1.7) L Laboratory Tests 02/12/18 19:45 Laboratory Tests 02/12/18 19:45 Microbiology 02/12/18 Blood Culture - Preliminary, Resulted NO GROWTH AFTER 1 DAY EKG EKG [] Radiology/Procedures Radiology/Procedures []PROCEDURE: VENOUS LOWER EXT BILATERAL Bilateral lower extremity venous Doppler dated 02/12/2018. No comparison available. Clinical data indication: Edema. FINDINGS: Grayscale, color-flow and spectral waveform analysis performed to include the deep venous system of both lower extremity. Normal compressibility, phasicity and augmentation of flow throughout. No filling defects are seen. IMPRESSION: No evidence of lower extremity deep vein thrombosis. Electronically signed by: José Luis Koehler MD (02/12/2018 8:20 PM) [facility] Course & Med Decision Making Course & Med Decision Making 72 yo male with hx lymphedema presenting for worsening edema with increasing redness and warmth. Physical exam concerning for bilateral lower extremity cellulitis without evidence of fluctuance L>R. No fever or chills, vitals unremarkable. Labs collected, evaluated, and posted to chart. CBC, CMP, PT/INR, PTT unremarkable. Bilateral lower extremity Doppler ultrasound negative for DVT. Patient prescribed clindamycin for bilateral lower extremity cellulitis. Patient stable for discharge with outpatient follow-up with wound care clinic. Discussed findings and plan with patient, who acknowledges understanding and agreement. [] Dragon Disclaimer Dragon Disclaimer This electronic medical record was generated, in whole or in part, using a voice recognition dictation system. Departure Departure Impression: Primary Impression: Cellulitis Disposition: 01 HOME, SELF-CARE Condition: STABLE Referrals: SANDRA MAXWELL MD (PCP) Patient Instructions: Cellulitis, [id number] Scripts Clindamycin Hcl (CLINDAMYCIN HCL) 300 Mg Capsule 1 CAP PO TID for Infection, #30 CAP Prov: JOSÉ LUIS YEE DO 02/12/18 Problem Qualifiers Primary Impression: Cellulitis Site of cellulitis: extremity Site of cellulitis of extremity: lower extremity Laterality: left Qualified Codes: L03.116 - Cellulitis of left lower limb JOSÉ LUIS YEE DO Feb 12, 2018 19:41
[2018-02-12 19:51] LABS: BASO # 0.1 x10^3/uL (0.0-0.2); BASO % 1 % (0-3); EOS # 0.2 x10^3/uL (0.0-0.7); EOS % 3 % (0-3); HEMATOCRIT 41.7 % (39.0-53.0); HEMOGLOBIN 13.9 g/dL (13.0-17.5); LYMPH % 13 % (24-48); MEAN CORPUSCULAR HEMOGLOBIN 31 pg (25-35); MEAN CORPUSCULAR HGB CONC 33 g/dL (31-37); MEAN CORPUSCULAR VOLUME 93 fL (79-100); MONO # 0.6 x10^3/uL (0.0-1.1); MONO % 9 % (0-9); NEUT # 5.5 x10^3uL (1.8-7.7); NEUT % 74 % (31-73); PLATELET COUNT 236 x10^3/uL (140-400); RED BLOOD COUNT 4.47 x10^6/uL (4.30-5.70); RED CELL DISTRIBUTION WIDTH 15.2 % (11.5-14.5); WHITE BLOOD COUNT 7.4 x10^3/uL (4.0-11.0)
[2018-02-12 20:00] LABS: PROTHROMBIN TIME PATIENT 13.5 SEC (11.7-14.0)
[2018-02-12 20:05] LABS: CALCIUM 9.2 mg/dL (8.5-10.1); CREATININE 1.1 mg/dL (0.7-1.3); GFR 65.4; POTASSIUM 4.3 mmol/L (3.5-5.1)
[2018-02-12 20:11] LABS: ALBUMIN 3.4 g/dL (3.4-5.0); ALBUMIN/GLOBULIN RATIO 0.9 (1.0-1.7); MAGNESIUM 2.1 mg/dL (1.8-2.4); TOTAL BILIRUBIN 0.5 mg/dL (0.2-1.0); TOTAL PROTEIN 7.3 g/dL (6.4-8.2)
--- NOTE | 2018-02-12 20:24 | RAD ---
Bilateral lower extremity venous Doppler dated 02/12/2018. No comparison available. Clinical data indication: Edema. FINDINGS: Grayscale, color-flow and spectral waveform analysis performed to include the deep venous system of both lower extremity. Normal compressibility, phasicity and augmentation of flow throughout. No filling defects are seen. IMPRESSION: No evidence of lower extremity deep vein thrombosis. Electronically signed by: José Luis Koehler MD (02/12/2018 8:20 PM) [facility]
[2018-02-12] MEDS ORDERED: CLIN300C8 PO (20:43)
[2018-02-12 20:58] VITALS: BP 161/87
== END 2018-02-12 21:45 | disposition home or self-care (01) ==
LOC: ER 16:59
DX: L03.116 Cellulitis of left lower limb (principal); I10 Essential (primary) hypertension; Z86.718 Personal history of other venous thrombosis and embolism; Z88.5 Allergy status to narcotic agent
CPT/HCPCS: 36415; 80053; 83605; 83735; 83880; 85025; 85610; 85730; 87040; 93970; 96365; 99284; J3490

== ENCOUNTER → 2018-08-16 | Outpatient (CLI) | payer MEDICARE ==
[~2018-08-16] MED LIST changes: +CLIN300C8 PO
--- NOTE | 2018-08-16 15:47 | RAD ---
Bilateral lower extremity arterial Doppler ultrasound HISTORY: Nonhealing leg wound. TECHNIQUE: Color Doppler, grayscale and duplex analysis performed of the right and left lower extremity arterial structures, from the common femoral artery through the runoff vessels. COMPARISON: None are available All velocity measurements are in centimeters per second. Exam is limited due to leg swelling and body habitus. Right leg: Right common femoral artery and superficial femoral artery are patent with triphasic waveforms as is the popliteal artery. Monophasic waveforms identified in the posterior tibial, peroneal and anterior tibial arteries. Dorsalis pedis artery is triphasic. No critical segmental velocity elevation is identified. No evidence of occlusion. Velocities range from 36 through 153. Left leg: Left common femoral artery and proximal superficial femoral artery are triphasic. The mid and distal superficial femoral artery demonstrates monophasic waveform. Triphasic popliteal artery waveform. The runoff vessels in the left lower leg are poorly seen. The distal posterior tibial artery is seen with monophasic waveform. The anterior tibial artery is seen with monophasic waveform. Peroneal artery and proximal posterior tibial artery are not seen. Dorsalis pedis artery is patent with triphasic waveform. No critical segmental velocity elevation is identified. No evidence of occlusion. Velocities range from 67 through 174. Right VICKI: 1.2 Left VICKI: 1.3 IMPRESSION: 1. Atherosclerotic changes in both legs, but no evidence of occlusion or critical stenosis. 2. Ankle-brachial indices are within normal limits bilaterally. Electronically signed by: José Luis Hewitt MD (08/16/2018 3:44 PM) [id number]
--- NOTE | 2018-08-16 17:11 | RAD ---
EXAM: Bilateral lower extremity venous reflux sonogram. HISTORY: Nonhealing wounds. TECHNIQUE: Sonographic imaging of the lower extremity veins was performed. COMPARISON: None. FINDINGS: There are bilateral calf creative producer veins which demonstrate reflux. For reference purposes, there is a 4.3 mm right calf creative producer measuring 22 cm up with reflux of 1.9 seconds. There is a 4.5 mm right calf creative producer measuring 24 cm of with reflux of 1.7 seconds. There is a 4.6 mm left calf creative producer measuring 33 cm with reflux of 1.8 seconds. There is a 5.8 mm left calf creative producer measuring 18 cm up with reflux of 2.0 seconds. There has been prior greater and lesser saphenous vein ablation surgery. IMPRESSION: 1. Findings consistent with bilateral greater and lesser saphenous vein ablation. 2. Bilateral calf creative producer veins with reflux described above. Electronically signed by: Mirian Casas MD (08/16/2018 5:09 PM) [facility]
== END | disposition home or self-care (01) ==
LOC: US 13:38
PROVIDERS: ATTEND Emergency Medicine Undersea and Hyperbaric Medicine
DX: I70.203 Unspecified atherosclerosis of native arteries of extremities, bilateral legs (principal); I87.2 Venous insufficiency (chronic) (peripheral); L97.929 Non-pressure chronic ulcer of unspecified part of left lower leg with unspecified severity; L97.919 Non-pressure chronic ulcer of unspecified part of right lower leg with unspecified severity
CPT/HCPCS: 93922; 93925; 93970

== ENCOUNTER → 2019-04-04 | Outpatient (CLI) | payer MEDICARE ==
[~2019-04-04] MED LIST changes: -MECL12.52 PO; +MECL12.573 PO
[2019-04-04 11:30] LABS: BASO # 0.1 x10^3/uL (0.0-0.2); BASO % 1 % (0-3); EOS # 0.4 x10^3/uL (0.0-0.7); EOS % 5 % (0-3); HEMATOCRIT 44.2 % (39.0-53.0); HEMOGLOBIN 14.7 g/dL (13.0-17.5); LYMPH # 0.9 x10^3/uL (1.0-4.8); LYMPH % 12 % (24-48); MEAN CORPUSCULAR HEMOGLOBIN 31 pg (25-35); MEAN CORPUSCULAR HGB CONC 33 g/dL (31-37); MEAN CORPUSCULAR VOLUME 93 fL (79-100); MONO # 0.8 x10^3/uL (0.0-1.1); MONO % 10 % (0-9); NEUT # 5.5 x10^3/uL (1.8-7.7); NEUT % 73 % (31-73); PLATELET COUNT 304 x10^3/uL (140-400); RED BLOOD COUNT 4.77 x10^6/uL (4.30-5.70); WHITE BLOOD COUNT 7.6 x10^3/uL (4.0-11.0)
[2019-04-04 11:41] LABS: CALCIUM 9.1 mg/dL (8.5-10.1); CREATININE 1.2 mg/dL (0.7-1.3); MAGNESIUM 1.8 mg/dL (1.8-2.4); POTASSIUM 4.2 mmol/L (3.5-5.1)
== END | disposition home or self-care (01) ==
LOC: LAB 10:34
PROVIDERS: ATTEND Internal Medicine Cardiovascular Disease
DX: I10 Essential (primary) hypertension (principal); E78.5 Hyperlipidemia, unspecified
CPT/HCPCS: 36415; 80048; 83735; 85025

== ENCOUNTER 2019-05-29 14:24 | Emergency (ER) | payer MEDICARE ==
[~2019-05-29] VITALS: Ht 167.6 cm; Wt 140.0 kg
[2019-05-29 14:56] LABS: BASO # 0.1 x10^3/uL (0.0-0.2); BASO % 1 % (0-3); EOS # 0.2 x10^3/uL (0.0-0.7); EOS % 3 % (0-3); HEMATOCRIT 42.8 % (39.0-53.0); HEMOGLOBIN 14.4 g/dL (13.0-17.5); LYMPH # 0.9 x10^3/uL (1.0-4.8); LYMPH % 11 % (24-48); MEAN CORPUSCULAR HEMOGLOBIN 32 pg (25-35); MEAN CORPUSCULAR HGB CONC 34 g/dL (31-37); MEAN CORPUSCULAR VOLUME 93 fL (79-100); MONO # 0.8 x10^3/uL (0.0-1.1); MONO % 9 % (0-9); NEUT # 6.2 x10^3/uL (1.8-7.7); NEUT % 76 % (31-73); PLATELET COUNT 243 x10^3/uL (140-400); RED BLOOD COUNT 4.58 x10^6/uL (4.30-5.70); RED CELL DISTRIBUTION WIDTH 15.9 % (11.5-14.5); WHITE BLOOD COUNT 8.2 x10^3/uL (4.0-11.0)
[2019-05-29 15:05] LABS: PROTHROMBIN TIME PATIENT 12.7 SEC (11.7-14.0)
--- NOTE | 2019-05-29 15:10 | PHYS DOC ---
Past Medical History Past Medical History: CAD, Cancer, DVT, Gallstones, Hypertension, Vascular Disease, Other Additional Past Medical Histor: colon cancer, LEG LYMPH EDEMA, CELLULITIS BILAT LEG,CHRONIC LEG SWELLING (RICH DASILVA APRN) Past Surgical History: Other Additional Past Surgical Histo: colostomy, cyst removed from tailbone, BILAT LEG VEIN STRIPPING (RICH DASILVA APRN) Smoking Status: Former Smoker Alcohol Use: Sober Drug Use: None (RICH DASILVA APRN) Adult General Chief Complaint Chief Complaint: DIZZY/LIGHT HEADED HPI HPI Patient is a 73 year old male, accompanied by his , who presents to the emergency department with complaints of an episode of dizziness and lightheadedness that happened approximately hour prior to arrival. Patient states that symptoms began after he stood up from a seating position. Patient states that this time he felt like his mouth was exceptionally dry, he felt short of breath, and his forehead began to sweat. He denies any chest pain, palpitations, shortness of breath, vision changes, numbness, tingling, or weakness associated with the onset of the symptoms. Patient states that the symptoms resolved shortly thereafter. He denies any complaints at this time. He currently denies any pain. Patient reports that he has had problems with vertigo in the past and that his symptoms were similar to how he has previously felt with vertigo episodes today. (RICH DASILVA APRN) Review of Systems Review of Systems Complete ROS is negative unless otherwise noted in HPI. (RICH DASILVA APRN) Current Medications Current Medications Current Medications Medications (Trade) Dose Ordered Sig/Joce Start Time Stop Time Status Last Admin Dose Admin Magnesium Oxide (Magnesium Oxide) 400 mg 1X ONCE 05/29/19 16:15 05/29/19 16:16 DC 05/29/19 18:23 400 MG Meclizine HCl (Antivert) 25 mg 1X ONCE 05/29/19 15:15 05/29/19 15:16 DC 05/29/19 15:27 25 MG Sodium Chloride 500 ml @ 500 mls/hr 1X ONCE 05/29/19 15:15 05/29/19 16:14 DC 05/29/19 15:29 500 MLS/HR (JENN ALSTON MD) Allergies Allergies Allergies Coded Allergies Type Severity Reaction Last Updated Verified codeine Adverse Reaction Intermediate very sleepy 04/14/16 Yes (JENN ALSTON MD) Physical Exam Physical Exam See Above Constitutional: Well developed, well nourished, no acute distress, non-toxic appearance, obese. [] HENT: Normocephalic, atraumatic, bilateral external ears normal, oropharynx dry, no oral exudates, nose normal. [] Eyes: PERRLA, EOMI, conjunctiva normal, no discharge, no nystagmus. [] Neck: Normal range of motion, no stridor. [] Cardiovascular:Heart rate regular rhythm Lungs & Thorax: Bilateral breath sounds clear to auscultation, Respirations even and unlabored, no retractions, no respiratory distress [] Abdomen: Bowel sounds normal, soft, no tenderness, no masses, no pulsatile masses. [] Skin: Warm, dry, no erythema, no rash. [] Back: No tenderness, no CVA tenderness. [] Extremities: No cyanosis, ROM intact Neurologic: Alert and oriented X 3, normal motor function, normal sensory function, no focal deficits noted. [] Psychologic: Affect normal, judgement normal, mood normal. [] (RICH DASILVA APRN) Current Patient Data Vital Signs Vital Signs Date Time Temp Pulse Resp B/P (MAP) Pulse Ox O2 Delivery O2 Flow Rate FiO2 05/29/19 17:00 70 95 05/29/19 15:00 97.9 20 172/97 (122) Room Air 97.9 (JENN ALSTON MD) Lab Values Laboratory Tests Test 05/29/19 14:47 05/29/19 16:10 05/29/19 18:20 White Blood Count 8.2 x10^3/uL (4.0-11.0) Red Blood Count 4.58 x10^6/uL (4.30-5.70) Hemoglobin 14.4 g/dL (13.0-17.5) Hematocrit 42.8 % (39.0-53.0) Mean Corpuscular Volume 93 fL (79-100) Mean Corpuscular Hemoglobin 32 pg (25-35) Mean Corpuscular Hemoglobin Concent 34 g/dL (31-37) Red Cell Distribution Width 15.9 % (11.5-14.5) H Platelet Count 243 x10^3/uL (140-400) Neutrophils (%) (Auto) 76 % (31-73) H Lymphocytes (%) (Auto) 11 % (24-48) L Monocytes (%) (Auto) 9 % (0-9) Eosinophils (%) (Auto) 3 % (0-3) Basophils (%) (Auto) 1 % (0-3) Neutrophils # (Auto) 6.2 x10^3/uL (1.8-7.7) Lymphocytes # (Auto) 0.9 x10^3/uL (1.0-4.8) L Monocytes # (Auto) 0.8 x10^3/uL (0.0-1.1) Eosinophils # (Auto) 0.2 x10^3/uL (0.0-0.7) Basophils # (Auto) 0.1 x10^3/uL (0.0-0.2) Prothrombin Time 12.7 SEC (11.7-14.0) Prothrombin Time INR 1.0 (0.8-1.1) Activated Partial Thromboplast Time 32 SEC (24-38) Sodium Level 141 mmol/L (136-145) Potassium Level 4.2 mmol/L (3.5-5.1) Chloride Level 103 mmol/L (98-107) Carbon Dioxide Level 28 mmol/L (21-32) Anion Gap 10 (6-14) Blood Urea Nitrogen 20 mg/dL (8-26) Creatinine 1.1 mg/dL (0.7-1.3) Estimated GFR (Cockcroft-Gault) 65.3 BUN/Creatinine Ratio 18 (6-20) Glucose Level 103 mg/dL (70-99) H Calcium Level 9.1 mg/dL (8.5-10.1) Magnesium Level 1.7 mg/dL (1.8-2.4) L Total Bilirubin 0.9 mg/dL (0.2-1.0) Aspartate Amino Transferase (AST) 27 U/L (15-37) Alanine Aminotransferase (ALT) 56 U/L (16-63) Alkaline Phosphatase 88 U/L (46-116) Troponin I Quantitative < 0.017 ng/mL (0.000-0.055) < 0.017 ng/mL (0.000-0.055) Total Protein 7.1 g/dL (6.4-8.2) Albumin 3.6 g/dL (3.4-5.0) Albumin/Globulin Ratio 1.0 (1.0-1.7) Urine Collection Type Unknown Urine Color Yellow Urine Clarity Cloudy Urine pH 5.5 (<5.0-8.0) Urine Specific [place] 1.020 (1.000-1.030) Urine Protein 100 mg/dL (NEG-TRACE) Urine Glucose (UA) Negative mg/dL (NEG) Urine Ketones (Stick) Negative mg/dL (NEG) Urine Blood Large (NEG) Urine Nitrite Negative (NEG) Urine Bilirubin Negative (NEG) Urine Urobilinogen Dipstick 0.2 mg/dL (0.2 mg/dL) Urine Leukocyte Esterase Small (NEG) Urine RBC >40 /HPF (0-2) Urine WBC 1-4 /HPF (0-4) Urine Squamous Epithelial Cells Mod /LPF Urine Bacteria Few /HPF (0-FEW) Urine Mucus Mod /LPF Laboratory Tests 05/29/19 14:47 Laboratory Tests 05/29/19 14:47 (JENN ALSTON MD) EKG EKG 1445- SR rate 69, no STEMI read by Dr. Alston. [] (RICH DASILVA APRN) Radiology/Procedures Radiology/Procedures PROCEDURE: CHEST AP ONLY INDICATION: Dizziness COMPARISON: November 20, 2017 FINDINGS: Single view of chest obtained. Cardiomediastinal silhouette is again prominent in size. Hypoexpanded exam of the lungs without definite focal airspace consolidation. Degenerative changes of the bilateral shoulders. IMPRESSION: * Hypoexpanded exam without definite focal airspace consolidation. * Enlarged cardiac mediastinal silhouette.[] PROCEDURE: CT HEAD WO CONTRAST CT HEAD WO CONTRAST Clinical indications: Dizziness. COMPARISON: November 20, 2017. Technique: Noncontrast axial cross sectional scanning of the head was performed. PQRS compliance Statement One or more of the following individualized dose reduction techniques were utilized for this study: 1. Automated exposure control 2. Adjustment of the mA and/or kV according to patient size 3. Use of iterative reconstruction technique Findings: No acute intracranial hemorrhage or midline shift or mass-effect or hydrocephalus or extra-axial fluid collection is seen. No no focal hypodense area or sulci effacement is seen to indicate an acute infarct or edema radiographically. No skull fracture or pneumocephalus is seen. No opacification of the mastoid sinuses or the middle ear cavities or the paranasal sinuses is seen. The maxillary sinuses are not completely seen in this study. Impression: No new intracranial abnormality is seen. (RICH DASILVA APRN) Course & Med Decision Making Course & Med Decision Making Pertinent Labs and Imaging studies reviewed. (See chart for details) Patient is a 73-year-old male with a history of vertigo that presented to the emergency department for episode of dizziness that happened today after standing up. Upon arrival to the ER patient denied any symptoms. EKG revealed no acute findings. CBC was unremarkable; PT/INR were within normal limits; CMP revealed a glucose of 103 and a magnesium of 1.7 otherwise unremarkable, troponin at 1447 was less than 0.017 and was less than 0.017 again at 1820. Urinalysis revealed a large amount of blood, 1-4 white blood cells, otherwise unremarkable. In the ER The patient was given 25 mg of meclizine. He denied any further dizziness after this medication. His vital signs are stable. I advised the patient of his normal chest x-ray and normal CT reports also with his lab work. I encouraged the patient to follow-up with his primary care doctor or urologist about the blood in his urine. Prescription was written for meclizine. Patient encouraged to follow-up with his primary care doctor this week. He was informed to return to the emergency room if his symptoms returned or he develops a fever or chest pain. Patient verbalized an understanding of home care, medications, follow-up, and return to ED instructions and was in agreement with the plan of care. (RICH DASILVA APRN) Course & Med Decision Making Staff Physician Addendum: I was working in the ER during the course of this patient's visit. I was available for consultation as needed, but I was not directly involved in the care of this patient. (JENN ALSTON MD) Dragon Disclaimer Dragon Disclaimer This electronic medical record was generated, in whole or in part, using a voice recognition dictation system. (RICH DASILVA APRN) Departure Departure Impression: Primary Impression: Dizziness Disposition: 01 HOME, SELF-CARE Condition: STABLE Referrals: SANDRA MAXWELL MD (PCP) Patient Instructions: Vertigo, [id number] Additional Instructions: Fill the prescription and use as directed. Change positions slowly. Follow up with your primary care doctor tomorrow. Return to the ER if symptoms worsen, you develop chest pain, fever, or shortness of breath. Scripts Meclizine Hcl (MECLIZINE HCL) 25 Mg Tablet 1 TAB PO PRN TID PRN for DIZZINESS for 10 Days, #30 TAB 0 Refills Prov: RICH DASILVA APRN 05/29/19 RICH DASILVA APRN May 29, 2019 15:10 JENN ALSTON MD May 30, 2019 06:32
--- NOTE | 2019-05-29 15:11 | EKG ---
[facility] [address] [place] [address] Test Date: 2019-05-29 Test Time: 14:45:34 Pat Name: JARROD GARCIA Department: Room: Gender: M [employer]: : 1945 Requested By: RICH DASILVA Order Number: [id number] Reading MD: Measurements Intervals Notus Rate: 68 P: 31 AR: 142 QRS: 9 QRSD: 94 T: 67 QT: 388 QTc: 417 Interpretive Statements SINUS RHYTHM ATRIAL PREMATURE COMPLEX(ES) NON SPECIFIC T ABNORMALITY BORDERLINE ECG No previous ECG available for comparison
[2019-05-29 15:13] LABS: CALCIUM 9.1 mg/dL (8.5-10.1); CREATININE 1.1 mg/dL (0.7-1.3); GFR 65.3; POTASSIUM 4.2 mmol/L (3.5-5.1)
[2019-05-29] MEDS ORDERED: IV NORMAL SALINE 500ML BAG 500 ML IV ONE (15:15)
[2019-05-29] MEDS ORDERED: MECLIZINE HCL 12.5 MG TABLET. PO ONE (15:15)
[2019-05-29 15:17] LABS: ALBUMIN 3.6 g/dL (3.4-5.0); MAGNESIUM 1.7 mg/dL (1.8-2.4); TOTAL BILIRUBIN 0.9 mg/dL (0.2-1.0); TOTAL PROTEIN 7.1 g/dL (6.4-8.2)
--- NOTE | 2019-05-29 15:59 | RAD ---
INDICATION: Dizziness COMPARISON: November 20, 2017 FINDINGS: Single view of chest obtained. Cardiomediastinal silhouette is again prominent in size. Hypoexpanded exam of the lungs without definite focal airspace consolidation. Degenerative changes of the bilateral shoulders. IMPRESSION: * Hypoexpanded exam without definite focal airspace consolidation. * Enlarged cardiac mediastinal silhouette. Electronically signed by: Aníbal Rosa MD (05/29/2019 3:56 PM) [id number]
[2019-05-29 16:00] VITALS: BP 139/90
[2019-05-29] MEDS ORDERED: MAGNESIUM OXIDE 400 MG TABLET PO ONE (16:15)
--- NOTE | 2019-05-29 16:17 | RAD ---
CT HEAD WO CONTRAST Clinical indications: Dizziness. COMPARISON: November 20, 2017. Technique: Noncontrast axial cross sectional scanning of the head was performed. PQRS compliance Statement One or more of the following individualized dose reduction techniques were utilized for this study: 1. Automated exposure control 2. Adjustment of the mA and/or kV according to patient size 3. Use of iterative reconstruction technique Findings: No acute intracranial hemorrhage or midline shift or mass-effect or hydrocephalus or extra-axial fluid collection is seen. No no focal hypodense area or sulci effacement is seen to indicate an acute infarct or edema radiographically. No skull fracture or pneumocephalus is seen. No opacification of the mastoid sinuses or the middle ear cavities or the paranasal sinuses is seen. The maxillary sinuses are not completely seen in this study. Impression: No new intracranial abnormality is seen. Electronically signed by: Pierce Florence MD (05/29/2019 4:14 PM) [facility] [place]
[2019-05-29 16:22] LABS: BILIRUBIN,URINE NEGATIVE (NEG); CLARITY,URINE CLOUDY; COLOR,URINE YELLOW; NITRITE,URINE NEGATIVE (NEG); PH,URINE 5.5 (<5.0-8.0); PROTEIN,URINE 100 mg/dL (NEG-TRACE); UROBILINOGEN,URINE 0.2 mg/dL (0.2 mg/dL)
[2019-05-29 16:34] LABS: BACTERIA,URINE FEW /HPF (0-FEW); RBC,URINE >40 /HPF (0-2); SQUAMOUS EPITHELIAL CELL,UR MOD /LPF
[2019-05-29] MEDS ORDERED: MECL-75 PO (19:27)
== END 2019-05-29 19:35 | disposition home or self-care (01) ==
LOC: ER 14:24
DX: R42 Dizziness and giddiness (principal); R06.02 Shortness of breath; Z87.891 Personal history of nicotine dependence; I10 Essential (primary) hypertension; I25.10 Atherosclerotic heart disease of native coronary artery without angina pectoris; Z88.5 Allergy status to narcotic agent
CPT/HCPCS: 36415; 70450; 71045; 80053; 81001; 83735; 84484; 85025; 85610; 85730; 87086; 93005; 99285; J7040; J8597

== ENCOUNTER → 2020-01-13 | Outpatient (CLI) | payer MEDICARE ==
[~2020-01-13] MED LIST changes: +MECL-75 PO
--- NOTE | 2020-01-14 16:14 | CARD ---
MR#: [id number] Date of Study: 01/13/2020 Ordering Physician: SANDRA LAUREN, Referring Physician: SANDRA LAUREN, Tech: Yessi Fowler APPROVED REPORT EXAM: Two-dimensional and M-mode echocardiogram with Doppler and color Doppler. Other Information Quality : AverageHR: 71bpm Technically limited study due to body habitus. INDICATION Dyspnea RISK FACTORS Hypertension Hyperlipidemia 2D DIMENSIONS Left Atrium(2D)3.2 (1.6-4.0cm)IVSd1.4 (0.7-1.1cm) Aortic Root(2D)3.5 (2.0-3.7cm)LVDd5.2 (3.9-5.9cm) LVOT Diameter2.1 (1.8-2.4cm)PWd1.2 (0.7-1.1cm) LVDs2.7 (2.5-4.0cm)FS (%) 48.4 % SV100.7 ml Aortic Valve AoV Peak Nick.158.5cm/sAoV VTI32.2cm AO Peak GR.10.0mmHgLVOT Peak Nick.94.3cm/s LVOT VTI 21.34cmAO Mean GR.6mmHg LEAH (VMAX)1.18hy1MFO (VTI)2.24cm2 Mitral Valve MV E Rpnjzefu03.8cm/sMV DECEL [id number] MV A Bnkvgsxa75.8cm/sMV PFA08zq E/A Ratio1.1MVA (PHT)2.68cm2 TDI E/Lateral E'7.8E/Medial E'11.6 Pulmonary Valve PV Peak Fyrtjfjc972.2cm/sPV Peak Grad.4mmHg Pulmonary Vein D2 Nyvbuglb10.6cm/sPVa [id number] LEFT VENTRICLE The left ventricle is normal size. There is mild to concentric left ventricular hypertrophy. The left ventricular systolic function is normal and the ejection fraction is within normal range. The Ejecti on Fraction is 50-55%. There is normal LV segmental wall motion. Transmitral Doppler flow pattern is Grade I-abnormal relaxation pattern. RIGHT VENTRICLE The right ventricle is borderline dilated. There is normal right ventricular wall thickness. The righ t ventricular systolic function is normal. ATRIA The left atrium is borderline dilated. The right atrium size is normal. The interatrial septum is int act with no evidence for an atrial septal defect or patent foramen ovale as noted on 2-D or Doppler i maging. AORTIC VALVE The aortic valve is thickened but opens well. Doppler and Color Flow revealed trace aortic regurgitat ion. There is no significant aortic valvular stenosis. Calculated aortic valve area is 2.30 cm2 with maximum pressure gradient of 11 mmHg and mean pressure gradient of 6 mmHg. MITRAL VALVE The mitral valve is normal in structure and function. There is no evidence of mitral valve prolapse. There is no mitral valve stenosis. Doppler and Color-flow revealed mild mitral regurgitation. TRICUSPID VALVE The tricuspid valve is normal in structure and function. Doppler and Color Flow revealed no tricuspid valve regurgitation noted. There is no tricuspid valve stenosis. PULMONIC VALVE The pulmonic valve is not well visualized. Doppler and Color Flow revealed trace pulmonic valvular re gurgitation. GREAT VESSELS The aortic root is normal in size. The ascending aorta is borderline dilated. The IVC is normal in si ze and collapses >50% with inspiration. PERICARDIAL EFFUSION There is no evidence of significant pericardial effusion. Critical Notification Critical Value: No <Conclusion> The left ventricle is normal size. The left ventricular systolic function is normal and the ejection fraction is within normal range. The Ejection Fraction is 50-55%. There is mild to concentric left ventricular hypertrophy. Doppler and Color Flow revealed trace aortic regurgitation. There is no significant aortic valvular stenosis. Doppler and Color-flow revealed mild mitral regurgitation. Doppler and Color Flow revealed no tricuspid valve regurgitation noted. Signed by : Sandra Lauren MD Electronically Approved : 01/14/2020 16:13:38
== END ==
LOC: ECHO 13:22
PROVIDERS: ATTEND Internal Medicine Cardiovascular Disease
DX: I51.7 Cardiomegaly (principal)
CPT/HCPCS: 93306